=== PATIENT | female | born 1945 | race African-American/Black ===

== ENCOUNTER 2020-06-18 18:33 | Inpatient (IN) | payer MEDICARE, OTHER ==
[~2020-06-18] VITALS: Ht 167.6 cm; Wt 41.7 kg
[~2020-06-18 18:33] MED LIST: ALBUTEROL2.5 MG/3 M INH; ARICEPT10 MG ORAL; ARNUITY ELLIP100 MCG IH; ASCORBIC ACID500 MG ORAL; ASPIRIN81 M3 PO; AZOPT10 ML OP; BREO ELLIPTA 11 EACH IH; BRIMONIDINE TART5 ML BOTH EYES; COMBIVENT RESPIM4 GM IH; CRESTOR10 M1 ORAL; DOCUSATE SODIU250 MG ORAL; IPRATROPIU0.2 MG/1 M HHN; KEPPRA500 MG ORAL; METOPROLOL TAR100 M1 ORAL; MONTELUKAST SOD10 MG ORAL; MULTIVITAMINS1 EA13 ORAL; NAMENDA10 MG ORAL; NITROSTAT0.4 M1 SL; OYSTERCAL-D 501 EACH PO; TEGRETOL200 MG PO; TRAVATAN Z5 ML OP; TYLENOL325 MG ORAL
--- NOTE | 2020-06-18 18:36 | Emergency Room Report ---
History of Present Illness General Chief Complaint: Altered Level of Consciousness Source: Medical Record, EMS Present Illness HPI Patient is a 75-year-old female reported COVID +19 patient who was brought in by EMS from her extended care facility for altered mental status. Patient has a DNR in her chart that states only comfort care. Unclear baseline mental status. Patient is only responsive to pain. Unable to obtain further history at this time. Allergies: Coded Allergies: NO KNOWN ALLERGIES (Unverified Allergy, Unknown, 10/21/15) COVID-19 Screening Contact w/high risk pt: Yes Experienced COVID-19 symptoms?: Yes COVID-19 Testing performed HOUSEPERSON: Yes COVID-19 Screening: Positive COVID-19 COVID-19 Testing Source: pnp Patient History Reviewed Nursing Documentation: PMH: Agreed; PSxH: Agreed Nursing Documentation-PMH Hx Cardiac Problems: Yes Hx Hypertension: Yes Hx COPD: Yes Hx Cancer: No Hx Gastrointestinal Problems: No Hx Neurological Problems: Yes Hx Transient Ischemic Attacks: Yes Hx Dementia: Yes Hx Seizures: Yes Review of Systems All Other Systems: limited - encephalopathy Physical Exam Vital Signs Date Time Temp Pulse Resp B/P (MAP) Pulse Ox O2 Delivery O2 Flow Rate FiO2 06/18/20 18:27 100.6 110 14 153/96 (115) 97 Room Air Sp02 EP Interpretation: reviewed, normal General Appearance: other - Responsive only to pain, Chronically Ill Head: normocephalic, atraumatic ENT: dry mucus membranes Neck: full range of motion, no meningismus Respiratory: chest non-tender, no respiratory distress, other - Right lower lobe rhonchi Cardiovascular #1: tachycardia Cardiovascular #2: 2+ carotid (R), 2+ carotid (L) Gastrointestinal: non tender, soft, no guarding, no rebound Rectal: deferred Psychiatric: other - unable to assess if she is not verbal in the emergency room Skin: no rash Lymphatic: no adenopathy Medical Decision Making Diagnostic Impression: Primary Impression: Encephalopathy Additional Impressions: COVID-19 Pneumonia Leukocytosis Hypernatremia ER Course Patient's vital signs demonstrate tachycardia and elevated temperature. Patient was brought to the ER for altered mental status. Unclear baseline mental status. Patient CT brain demonstrates no acute intracranial pathology. Patient is COVID-19 positive. X-ray demonstrates right lower lobe infiltrate. Patient's white blood cell count is 19,000 with normal lactic acid. Patient has been cultured and started on vancomycin as well as cefepime. Patient is hypernatremic. Due to her positive COVID PCR and risk of acute pulmonary edema only 1 L of IV fluids have been given at this time. Patient will be admitted for further treatment and evaluation. Laboratory Tests Test 06/18/20 18:40 06/18/20 19:25 White Blood Count 19.6 K/UL (4.8-10.8) H Red Blood Count 4.82 M/UL (4.20-5.40) Hemoglobin 15.5 G/DL (12.0-16.0) Hematocrit 47.4 % (37.0-47.0) H Mean Corpuscular Volume 98 FL (80-99) Mean Corpuscular Hemoglobin 32.2 PG (27.0-31.0) H Mean Corpuscular Hemoglobin Concent 32.7 G/DL (32.0-36.0) Red Cell Distribution Width 12.9 % (11.6-14.8) Platelet Count 229 K/UL (150-450) Mean Platelet Volume 4.8 FL (6.5-10.1) L Neutrophils (%) (Auto) % (45.0-75.0) Lymphocytes (%) (Auto) % (20.0-45.0) Monocytes (%) (Auto) % (1.0-10.0) Eosinophils (%) (Auto) % (0.0-3.0) Basophils (%) (Auto) % (0.0-2.0) Neutrophils % (Manual) Pending Lymphocytes % (Manual) Pending Platelet Estimate Pending Platelet Morphology Pending Prothrombin Time 11.9 SEC (9.30-11.50) H Prothrombin Time INR 1.1 (0.9-1.1) Activated Partial Thromboplast Time 31 SEC (23-33) Sodium Level 148 MMOL/L (136-145) H Potassium Level 3.6 MMOL/L (3.5-5.1) Chloride Level 107 MMOL/L (98-107) Carbon Dioxide Level 28 MMOL/L (21-32) Anion Gap 13 mmol/L (5-15) Blood Urea Nitrogen 12 mg/dL (7-18) Creatinine 1.2 MG/DL (0.55-1.30) Estimated Glomerular Filtration Rate 53.0 mL/min (>60) Glucose Level 149 MG/DL (74-106) H Lactic Acid Level 1.50 mmol/L (0.4-2.0) Calcium Level 9.0 MG/DL (8.5-10.1) Magnesium Level 2.0 MG/DL (1.8-2.4) Total Bilirubin 0.3 MG/DL (0.2-1.0) Aspartate Amino Transferase (AST) 59 U/L (15-37) H Alanine Aminotransferase (ALT) 58 U/L (12-78) Alkaline Phosphatase 74 U/L (46-116) Total Creatine Kinase 65 U/L (26-308) Troponin I 0.027 ng/mL (0.000-0.056) Pro-B-Type Natriuretic Peptide 767 pg/mL (0-125) H Total Protein 8.7 G/DL (6.4-8.2) H Albumin 3.3 G/DL (3.4-5.0) L Globulin 5.4 g/dL Albumin/Globulin Ratio 0.6 (1.0-2.7) L Arterial Blood pH 7.479 (7.350-7.450) Arterial Blood Partial Pressure CO2 31.0 mmHg (35.0-45.0) L Arterial Blood Partial Pressure O2 70.3 mmHg (75.0-100.0) L Arterial Blood HCO3 22.5 mmol/L (22.0-26.0) Arterial Blood Oxygen Saturation 94.5 % (95-100) L Arterial Blood Base Excess -0.1 (-2-2) Ze Test Positive Microbiology Date/Time Source Procedure Growth Status 06/18/20 18:30 Nasopharynx SARS-CoV-2 RdRp Gene Assay - Final Complete EKG Diagnostic Results EKG Time: 18:35 EP Interpretation: Monet Jones MD Rate: tachycardiac Rhythm: other - Sinus tachycardia ST Segments: no acute changes ASA given to the pt in ED: No Rhythm Strip Diag. Results Rhythm Strip Time: 18:44 EP Interpretation: yes - Monet Jones MD Rate: 109 bpm Rhythm: no PVC's, no ectopy, other - Sinus tachycardia Chest X-Ray Diagnostic Results Chest X-Ray Diagnostic Results : Chest X-Ray Ordered: Yes # of Views/Limited/Complete: 1 View Indication: Other - ams EP Interpretation: Yes Interpretation: no effusion, no pneumothorax, other - Right lower lobe infiltrate Impression: Other - Pneumonia Electronically Signed by: Monet Jones MD Last Vital Signs Date Time Temp Pulse Resp B/P (MAP) Pulse Ox O2 Delivery O2 Flow Rate FiO2 06/18/20 18:27 100.6 110 14 153/96 (115) 97 Room Air Disposition: ADMITTED INPATIENT Condition: Critical Physician Consult: Dr. Danielle MD at 815pm Additional Instructions: Please note that this report is being documented using Needcheck technology. This can lead to erroneous entry secondary to incorrect interpretation by the dictating instrument. Monet Jones M.D. Jun 18, 2020 18:36
[2020-06-18] MEDS ORDERED: Ketorolac 30mg Inj IV ONE (18:45)
[2020-06-18] MEDS ORDERED: Acetaminophen 650 MG SUPP RECTAL ONE (18:45)
[2020-06-18 19:05] VITALS: BP 153/96
[2020-06-18] MEDS ORDERED: Vancomycin 1 GM in NS 275 ML IVPB ONE (19:30)
[2020-06-18] MEDS ORDERED: Cefepime HCl 2 GM in D5W 55 ML IVPB ONE (19:30)
[2020-06-18 19:42] LABS: ANION GAP 13 mmol/L (5-15); BLOOD UREA NITROGEN 12 mg/dL (7-18); CARBON DIOXIDE 28 MMOL/L (21-32); CHLORIDE 107 MMOL/L (98-107); CREATININE 1.2 MG/DL (0.55-1.30); POTASSIUM 3.6 MMOL/L (3.5-5.1); SODIUM 148 MMOL/L (136-145)
[2020-06-18 19:52] LABS: ALANINE AMINOTRANSFERASE 58 U/L (12-78); ALBUMIN 3.3 G/DL (3.4-5.0); ALBUMIN/GLOBULIN RATIO 0.6 (1.0-2.7); ALKALINE PHOSPHATASE 74 U/L (46-116); ASPARTATE AMINO TRANSFERASE 59 U/L (15-37); BILIRUBIN,TOTAL 0.3 MG/DL (0.2-1.0); CREATINE KINASE 65 U/L (26-308)
[2020-06-18] MEDS ORDERED: ELIQUIS5 MG PO (19:56)
[2020-06-18] MEDS ORDERED: ATORVASTATIN CA20 MG ORAL (19:56)
[2020-06-18] MEDS ORDERED: TRUSOPT10 ML BOTH EYES (19:56)
[2020-06-18] MEDS ORDERED: PANTOPRAZOLE SO40 MG ORAL (19:56)
[2020-06-18] MEDS ORDERED: PULMICORT FLEX90 MCG IH (19:56)
[2020-06-18] MEDS ORDERED: [UNRECOGNIZED DRUG - OTHER] GT (19:56)
[2020-06-18] MEDS ORDERED: PRO-STAT LIQUID30 ML ORAL (19:56)
[2020-06-18] MEDS ORDERED: SINGULAIR10 MG ORAL (19:56)
[2020-06-18] MEDS ORDERED: NITRO-BID1 GM TOPIC (19:56)
[2020-06-18] MEDS ORDERED: XALATAN2.5 ML BOTH EYES (19:56)
[2020-06-18] MEDS ORDERED: KEPPRA LIQ100 MG/1 M ORAL (19:56)
[2020-06-18] MEDS ORDERED: METOPROLOL TART50 M1 ORAL (19:56)
[2020-06-18] MEDS ORDERED: TEGRETOL200 MG PO (19:56)
[2020-06-18 20:00] LABS: INR 1.1 (0.9-1.1)
[2020-06-18 20:02] LABS: HEMATOCRIT 47.4 % (37.0-47.0); HEMOGLOBIN 15.5 G/DL (12.0-16.0); MEAN CORPUSCULAR VOLUME 98 FL (80-99); PLATELET COUNT 229 K/UL (150-450); RED BLOOD COUNT 4.82 M/UL (4.20-5.40); RED CELL DISTRIBUTION WIDTH 12.9 % (11.6-14.8); WHITE BLOOD COUNT 19.6 K/UL (4.8-10.8)
[2020-06-18 20:20] VITALS: BP 147/85
[2020-06-18 21:30] VITALS: BP 141/81
[2020-06-18] MEDS ORDERED: Nitroglycerin Subl 0.4mg tab SL PRN (22:00)
[2020-06-18] MEDS: Piperacillin/Tazobactam 3.375 GM in NS 110 ML IVPB SCH (23:54)
[2020-06-19] VITALS: BP 152/70
[2020-06-19 04:00] VITALS: BP 143/89
[2020-06-19 06:44] LABS: ANION GAP 10 mmol/L (5-15); BLOOD UREA NITROGEN 15 mg/dL (7-18); CALCIUM 8.1 MG/DL (8.5-10.1); CARBON DIOXIDE 25 MMOL/L (21-32); CHLORIDE 113 MMOL/L (98-107); CREATININE 0.8 MG/DL (0.55-1.30); POTASSIUM 2.9 MMOL/L (3.5-5.1); SODIUM 148 MMOL/L (136-145)
[2020-06-19 06:57] LABS: HEMATOCRIT 42.8 % (37.0-47.0); MEAN CORPUSCULAR VOLUME 98 FL (80-99); PLATELET COUNT 217 K/UL (150-450); RED BLOOD COUNT 4.38 M/UL (4.20-5.40); RED CELL DISTRIBUTION WIDTH 12.6 % (11.6-14.8); WHITE BLOOD COUNT 21.8 K/UL (4.8-10.8)
[2020-06-19 08:00] VITALS: BP 186/101
[2020-06-19] MEDS: Montelukast 10mg tablet ORAL SCH (08:50)
[2020-06-19] MEDS: Metoprolol Tartrate 50mg tab ORAL SCH ×2 (08:50→20:39)
[2020-06-19] MEDS: Docusate 100mg cap ORAL SCH ×3 (08:50→17:52)
[2020-06-19] MEDS: Calcium Carbonate 500mg w/Vit D 200iu tab ORAL SCH ×2 (08:50→17:53)
[2020-06-19] MEDS: Aspirin Baby 81mg GT SCH (08:51)
[2020-06-19] MEDS: Memantine 10mg tab ORAL SCH ×2 (08:51→17:53)
[2020-06-19] MEDS: Eliquis 5mg tablet GT SCH ×2 (08:51→17:53)
[2020-06-19] MEDS: Nitroglycerin 2% oint pkt TOPIC SCH (08:51)
[2020-06-19] MEDS: Ascorbic Acid 500mg tab ORAL SCH (08:51)
[2020-06-19] MEDS: levETIRAcetam 500mg/5ml Liquid ORAL SCH ×3 (08:51→18:00)
[2020-06-19] MEDS: Megace 400mg/10ml Susp GT SCH ×3 (08:51→18:00)
[2020-06-19] MEDS: Brimonidine 0.2% Opth Sol BOTH EYES SCH ×2 (08:52→17:53)
[2020-06-19] MEDS: Multivitamin w/Minerals tab ORAL SCH (08:52)
[2020-06-19] MEDS: Donepezil 10mg tab ORAL SCH (08:52)
[2020-06-19] MEDS: Dorzolamide 2% 10ml Btl BOTH EYES SCH ×3 (08:52→17:53)
[2020-06-19] MEDS: carBAMazepine 200mg tab GT SCH ×2 (08:53→20:38)
[2020-06-19] MEDS: dexAMETHasone 10mg/ml Inj IV SCH (08:53)
[2020-06-19] MEDS: Piperacillin/Tazobactam 3.375 GM in NS 110 ML IVPB SCH ×2 (08:54→16:50)
[2020-06-19] MEDS: Budesonide HHN 0.25mg/2ml ud HHN SCH (09:00)
[2020-06-19] MEDS ORDERED: Enoxaparin 30mg Inj SUBQ SCH (09:00)
--- NOTE | 2020-06-19 09:42 | Diagnostic Imaging Report ---
Procedure: XRAY Chest 1v Reason for study: Shortness of breath Comparison films: 10/21/2015. FINDINGS: Radiograph is rotated. Vascularity is normal. There is diffuse interstitial prominence. Mild perihilar densities noted. Question early infiltrate. Cardiac and mediastinal silhouette are within normal limits. CP angles are sharp. The bony thorax appear unremarkable. IMPRESSION: Mild bilateral perihilar densities. Question early infiltrate. Recommend follow-up.
[2020-06-19 12:00] VITALS: BP 125/73
[2020-06-19] MEDS: Albuterol Sulfate Syrup 2mg/5ml ORAL SCH ×2 (13:02→20:46)
--- NOTE | 2020-06-19 15:30 | History and Physical Report ---
DATE OF ADMISSION: 06/18/2020 REASON FOR ADMISSION: COVID pneumonia. HISTORY OF PRESENT ILLNESS: This is a 75-year-old female reportedly COVID positive, presents from a [facility] facility with altered mental status. The patient is Do Not Resuscitate. The patient is unable to give any further history. The patient was seen and evaluated in the emergency room, was noted to have significant leukocytosis and noted hypoxemia as well as hyponatremia. The patient was admitted for further care and management. The patient is placed in isolation. X-rays as mentioned, showed focal infiltrate. The patient was placed on oxygen and detention orders were resumed. The patient noted to be hypertensive overnight. PAST MEDICAL HISTORY: Notable for dysrhythmias, hypercholesterolemia, glaucoma, COPD, dementia, and reflux disease. MEDICATIONS: Reviewed. ALLERGIES: Reviewed. SOCIAL HISTORY: Resides in a [facility] facility, likely mostly bedbound at this time. REVIEW OF SYSTEMS: Unobtainable due to the patient's present state. PHYSICAL EXAMINATION: VITAL SIGNS: Blood pressure 186/102, pulse 86, respirations 20. Saturation 93%. The remainder of physical exam was deferred due to COVID positive state. LABORATORY DATA: Sodium reviewed, potassium 2.9. BUN/creatinine normal. Arterial blood gases, 7.47/31/70/22. White count 21.8, hematocrit 42, platelets of 217. X-rays with noted fluffy infiltrate. IMPRESSION: 1. COVID pneumonia. 2. Respiratory insufficiency. 3. Hypoxemia. 4. Acute encephalopathy 5. Hypokalemia. 6. Leukocytosis. 7. Possible sepsis. 8. Dementia. 9. Hypercholesterolemia. 10. DNR state. RECOMMENDATIONS: Supportive care. Resume medications from the detention. Maintain apixaban. Empiric antibiotics and dexamethasone. Discussed with Infectious Disease as to remdesivir. Monitor oxygen levels and monitor respiratory status. At present, the patient is Do Not Resuscitate. We will attempt to stabilize and discharge the patient back to the [facility] facility when able. Zane Loza M.D. DR: RON JOB#: [id number] CC: MICHAEL
[2020-06-19 16:00] VITALS: BP 127/83
--- NOTE | 2020-06-19 17:30 | Consultation ---
DATE OF CONSULTATION: 06/19/2020 INFECTIOUS DISEASES CONSULTATION This consult is for coverage of Dr. Manuel CONSULTING PHYSICIAN: Kobe Brito MD. PRIMARY ATTENDING PHYSICIAN: Zane Loza MD. REASON FOR CONSULTATION: Sepsis, COVID-19 disease. HISTORY OF PRESENT ILLNESS: The patient is a 75-year-old female admitted last night from a nursing facility because of decrease in p.o. intake for three days, weakness, drowsiness, frailty. PAST MEDICAL HISTORY: Significant for hypertension, COPD, Alzheimer's dementia, cachexia, hyperlipidemia, dysphagia, major depression. ALLERGIES: No known drug allergies. MEDICATIONS: Atorvastatin, Xalatan eye drops, vancomycin, potassium chloride, dexamethasone, Protonix, Eliquis, vitamin C, aspirin, Alphagan eye drops, carbamazepine, Colace, Aricept, Trusopt eye drops, Keppra, Megace, memantine , Singulair, multivitamin, nitroglycerin, calcium with vitamin D, Zosyn, Pulmicort, Tylenol, Mylanta. SOCIAL HISTORY: Single, [facility] resident. No history of alcohol, drug abuse, or smoking. REVIEW OF SYSTEMS: The patient is noncommunicative, but she had fever of 102.4 in the hospital. PHYSICAL EXAMINATION: VITAL SIGNS: Temperature 98.6, pulse 102, blood pressure 186/101. GENERAL APPEARANCE: Seems to be cachectic. HEAD AND NECK: [place] conjunctiva. HEART: Tachycardic. LUNGS: Bilateral rhonchi. The patient is on room air oxygen. O2 saturation is 96%. ABDOMEN: Soft. EXTREMITIES: He has no edema, has muscle atrophy. NEUROLOGIC: Noncommunicative, drowsy. LABORATORY AND DIAGNOSTIC DATA: WBC 22.8, hemoglobin 14, hematocrit 42, platelet 217, lymphocyte low 10 to 12 percent. Sodium 148, potassium 2.9, chloride 113, bicarb 25, BUN 15, creatinine 0.8, glucose is 122. COVID-19 test was positive. Chest x-ray showed mild bilateral perihilar densities. IMPRESSION: Sepsis with fever, leukocytosis, tachycardia, and has COVID-19 disease. The patient is DNR status, has COPD, Alzheimer's dementia, cachexia, dysphagia, hypertension. RECOMMENDATION: Continue with vancomycin and Zosyn. We will follow up the cultures. The patient is in room air oxygen and also DNR status and comfort care we will not start Remdesivir. At the end of my exam, I thank Dr. Loza, for involving me in the care of this patient. Kobe Brito M.D. DR: Fredy JOB#: [id number] CC: MICHAEL
[2020-06-19 20:00] VITALS: BP 130/79
[2020-06-19] MEDS ORDERED: Vancomycin 1 GM in NS 275 ML IVPB SCH (20:00)
[2020-06-19] MEDS: Latanoprost 0.005% Opth 2.5ml Soln BOTH EYES SCH (20:53)
[2020-06-20] VITALS: BP 142/85
[2020-06-20] MEDS: Piperacillin/Tazobactam 3.375 GM in NS 110 ML IVPB SCH ×2 (00:19→08:25)
[2020-06-20 04:00] VITALS: BP 154/96
[2020-06-20 06:11] LABS: HEMATOCRIT 42.8 % (37.0-47.0); HEMOGLOBIN 13.8 G/DL (12.0-16.0); MEAN CORPUSCULAR VOLUME 98 FL (80-99); PLATELET COUNT 244 K/UL (150-450); RED BLOOD COUNT 4.35 M/UL (4.20-5.40); RED CELL DISTRIBUTION WIDTH 12.7 % (11.6-14.8); WHITE BLOOD COUNT 17.7 K/UL (4.8-10.8)
[2020-06-20 06:57] LABS: ALANINE AMINOTRANSFERASE 53 U/L (12-78); ALBUMIN 2.6 G/DL (3.4-5.0); ALBUMIN/GLOBULIN RATIO 0.5 (1.0-2.7); ALKALINE PHOSPHATASE 63 U/L (46-116); ANION GAP 12 mmol/L (5-15); ASPARTATE AMINO TRANSFERASE 52 U/L (15-37); BILIRUBIN,TOTAL 0.4 MG/DL (0.2-1.0); BLOOD UREA NITROGEN 17 mg/dL (7-18); CALCIUM 8.5 MG/DL (8.5-10.1); CARBON DIOXIDE 23 MMOL/L (21-32); CHLORIDE 118 MMOL/L (98-107); CREATININE 0.9 MG/DL (0.55-1.30); POTASSIUM 3.8 MMOL/L (3.5-5.1); SODIUM 153 MMOL/L (136-145)
[2020-06-20 08:00] VITALS: BP 159/90
[2020-06-20] MEDS: Montelukast 10mg tablet ORAL SCH (08:26)
[2020-06-20] MEDS: dexAMETHasone 10mg/ml Inj IV SCH (08:26)
[2020-06-20] MEDS: Multivitamin w/Minerals tab ORAL SCH (08:26)
[2020-06-20] MEDS: Ascorbic Acid 500mg tab ORAL SCH (08:26)
[2020-06-20] MEDS: Memantine 10mg tab ORAL SCH ×2 (08:26→17:10)
[2020-06-20] MEDS: Donepezil 10mg tab ORAL SCH (08:26)
[2020-06-20] MEDS: Aspirin Baby 81mg GT SCH (08:27)
[2020-06-20] MEDS: Metoprolol Tartrate 50mg tab ORAL SCH ×2 (08:27→20:40)
[2020-06-20] MEDS: Docusate 100mg cap ORAL SCH (08:27)
[2020-06-20] MEDS: Nitroglycerin 2% oint pkt TOPIC SCH (08:27)
[2020-06-20] MEDS: carBAMazepine 200mg tab GT SCH ×2 (08:28→20:42)
[2020-06-20] MEDS: levETIRAcetam 500mg/5ml Liquid ORAL SCH ×2 (08:28→17:10)
[2020-06-20] MEDS: Calcium Carbonate 500mg w/Vit D 200iu tab ORAL SCH ×2 (08:28→17:10)
[2020-06-20] MEDS: Eliquis 5mg tablet GT SCH ×2 (08:28→17:10)
[2020-06-20] MEDS: Budesonide HHN 0.25mg/2ml ud HHN SCH ×2 (08:28→09:00)
[2020-06-20] MEDS: Dorzolamide 2% 10ml Btl BOTH EYES SCH ×3 (08:30→17:23)
[2020-06-20] MEDS: Brimonidine 0.2% Opth Sol BOTH EYES SCH ×2 (08:30→17:23)
[2020-06-20] MEDS: Docusate 100mg/10ml Liq ORAL SCH ×3 (10:24→17:10)
[2020-06-20] MEDS: Albuterol Sulfate Syrup 2mg/5ml ORAL SCH ×2 (10:24→20:41)
--- NOTE | 2020-06-20 10:45 | Consultation ---
DATE OF CONSULTATION: 06/20/2020 INTERNAL MEDICINE CONSULTATION CONSULTING PHYSICIAN: Toni Bennett MD. REASON FOR CONSULTATION: General internal medicine management of COVID positive patient with multiple medical problems. HISTORY OF PRESENT ILLNESS: The patient is a 75-year-old female who is apparently COVID positive from a alf facility. She was transferred with complaints of altered mental status. She is currently lethargic and somnolent and drowsy. She is unable to provide any additional history, but per report, she is normally verbal at the alf facility. On evaluation in the emergency room, the patient's blood sugar was normal. She was febrile to 103.9. The patient's rapid COVID test in the ER was confirmed positive. The patient has been pancultured, started on intravenous antibiotics. She is now admitted for further evaluation and care. PAST MEDICAL HISTORY: Significant for history of encephalopathy, history of ischemic cardiomyopathy and coronary artery disease, history of dysphagia, Alzheimer disease, stroke with hemiparesis, protein-calorie malnutrition, dementia, and COPD. PAST SURGICAL HISTORY: Unknown. CURRENT MEDICATIONS: Reconciled and reviewed. ALLERGIES: None. FAMILY HISTORY: Unknown. SOCIAL HISTORY: There is no known history of tobacco, ethanol, or drugs. REVIEW OF SYSTEMS: From the patient is unobtainable. PHYSICAL EXAMINATION: GENERAL: The patient is a thin female, in no apparent distress. HEENT: Head is normocephalic and atraumatic. Pupils are equal, round, and reactive to light. Sclerae are anicteric. Oropharynx is clear. NECK: Supple. HEART: Regular rate and rhythm. LUNGS: Clear. ABDOMEN: Soft, nontender, and nondistended. EXTREMITIES: Without clubbing, cyanosis, or edema. LABORATORY DATA: Labs showed white count of 19,000, hemoglobin 15, hematocrit 47. Sodium 148, potassium 3.6, BUN of 12, creatinine was 1.2. Chest x-ray showed bilateral perihilar infiltrates. ASSESSMENT: This is a 75-year-old female who presents with complaints of fevers, altered mental status, COVID positive, likely with COVID-19 pneumonia. RECOMMENDATIONS: Empiric antibiotic therapy to cover for bacterial pneumonia. Consider intravenous steroids, Remdesivir. ID consultation. DVT prophylaxis. We will discontinue Megace due to the risk of thromboembolism. The patient does have an advance directive for DNR. Her prognosis currently is guarded. Toni Bennett M.D. DR: DAVID JOB#: [id number] CC:
--- NOTE | 2020-06-20 10:50 | Infectious Diseases Prog Note ---
Assessment/Plan Assessment/Plan antibiotics : vancomycin iv, zosyn, dexamethasone A 1. COVID 19 pneumonia on room air, O2 saturation 96 percent 2. hypertension 3. dementia 4. COPD P 1. continue dexamethasone day 2 2. d/c iv vancomycin, zosyn 3. will follow up cultures 4. continue isolation Subjective ROS Limited/Unobtainable: Yes Allergies: Coded Allergies: NO KNOWN ALLERGIES (Unverified Allergy, Unknown, 10/21/15) Objective Last 24 Hour Vital Signs Date Time Temp Pulse Resp B/P (MAP) Pulse Ox O2 Delivery O2 Flow Rate FiO2 06/20/20 08:27 159/90 06/20/20 08:27 95 159/90 06/20/20 08:00 98.2 95 20 159/90 (113) 92 06/20/20 04:00 97.9 87 20 154/96 (115) 98 06/20/20 00:00 97.2 81 20 142/85 (104) 96 06/19/20 20:39 89 130/79 06/19/20 20:26 Room Air 06/19/20 20:00 97.5 89 20 130/79 (96) 95 06/19/20 16:00 97.5 78 19 127/83 (98) 98 06/19/20 12:00 98.1 80 19 125/73 (90) 96 Height (Feet): 5 Height (Inches): 6.00 Weight (Pounds): 95 Microbiology Date/Time Source Procedure Growth Status 06/18/20 18:40 Blood Blood Culture - Preliminary NO GROWTH AFTER 24 HOURS Resulted 06/18/20 18:25 Blood Blood Culture - Preliminary NO GROWTH AFTER 24 HOURS Resulted 06/18/20 18:30 Nasopharynx SARS-CoV-2 RdRp Gene Assay - Final Complete 06/18/20 18:40 Rectum Received Laboratory Tests Test 06/20/20 05:30 White Blood Count 17.7 K/UL (4.8-10.8) H Red Blood Count 4.35 M/UL (4.20-5.40) Hemoglobin 13.8 G/DL (12.0-16.0) Hematocrit 42.8 % (37.0-47.0) Mean Corpuscular Volume 98 FL (80-99) Mean Corpuscular Hemoglobin 31.7 PG (27.0-31.0) H Mean Corpuscular Hemoglobin Concent 32.2 G/DL (32.0-36.0) Red Cell Distribution Width 12.7 % (11.6-14.8) Platelet Count 244 K/UL (150-450) Mean Platelet Volume 5.3 FL (6.5-10.1) L Neutrophils (%) (Auto) % (45.0-75.0) Lymphocytes (%) (Auto) % (20.0-45.0) Monocytes (%) (Auto) % (1.0-10.0) Eosinophils (%) (Auto) % (0.0-3.0) Basophils (%) (Auto) % (0.0-2.0) Differential Total Cells Counted 100 Neutrophils % (Manual) 88 % (45-75) H Lymphocytes % (Manual) 9 % (20-45) L Monocytes % (Manual) 3 % (1-10) Eosinophils % (Manual) 0 % (0-3) Basophils % (Manual) 0 % (0-2) Band Neutrophils 0 % (0-8) Platelet Estimate Adequate Platelet Morphology Normal Red Blood Cell Morphology Normal Sodium Level 153 MMOL/L (136-145) H Potassium Level 3.8 MMOL/L (3.5-5.1) Chloride Level 118 MMOL/L (98-107) H Carbon Dioxide Level 23 MMOL/L (21-32) Anion Gap 12 mmol/L (5-15) Blood Urea Nitrogen 17 mg/dL (7-18) Creatinine 0.9 MG/DL (0.55-1.30) Estimat Glomerular Filtration Rate > 60 mL/min (>60) Glucose Level 100 MG/DL (74-106) Calcium Level 8.5 MG/DL (8.5-10.1) Total Bilirubin 0.4 MG/DL (0.2-1.0) Aspartate Amino Transf (AST/SGOT) 52 U/L (15-37) H Alanine Aminotransferase (ALT/SGPT) 53 U/L (12-78) Alkaline Phosphatase 63 U/L (46-116) Total Protein 7.5 G/DL (6.4-8.2) Albumin 2.6 G/DL (3.4-5.0) L Globulin 4.9 g/dL Albumin/Globulin Ratio 0.5 (1.0-2.7) L Carbamazepine (Tegretol) Level 12.9 ug/mL (4.0-12.0) *H Current Medications Medications (Trade) Dose Ordered Sig/Johnson Route PRN Reason Start Time Stop Time Status Last Admin Dose Admin Acetaminophen (Tylenol) 650 mg Q4H PRN ORAL Temp >100.5/ mild pain (1-3) 06/18/20 21:45 07/18/20 21:44 Al Hydroxide/Mg Hydroxide (Mylanta) 30 ml EVERY 4 HOURS PRN ORAL stomach upset/heartburn/indige 06/18/20 21:45 07/18/20 21:44 Apixaban (Eliquis) 5 mg BID GT 06/19/20 09:00 09/17/20 08:59 06/20/20 08:28 Ascorbic Acid (Vitamin C) 500 mg DAILY ORAL 06/19/20 09:00 07/19/20 08:59 06/20/20 08:26 Aspirin (ASA) 81 mg DAILY GT 06/19/20 09:00 08/03/20 08:59 06/20/20 08:27 Atorvastatin Calcium (Lipitor) 20 mg BEDTIME ORAL 06/19/20 21:00 09/17/20 20:59 06/19/20 20:38 Beclomethasone Dipropionate (Qvar 40 Inhaler) 1 puff BIDRT INH 06/20/20 11:00 07/20/20 10:59 Brimonidine Tartrate (Alphagan) 1 drop BID BOTH EYES 06/19/20 09:00 09/17/20 08:59 06/20/20 08:30 Calcium/Vitamin D (OsCal D) 1 tab BID ORAL 06/19/20 09:00 09/17/20 08:59 06/20/20 08:28 Carbamazepine (TEGretol) 200 mg Q12HR GT 06/19/20 09:00 07/19/20 08:59 06/20/20 08:28 Dexamethasone Sodium Phosphate (Decadron 10mg/ ml Inj) 6 mg DAILY IV 06/19/20 09:00 09/17/20 08:59 06/20/20 08:26 Docusate Sodium (Colace) 100 mg THREE TIMES A DAY ORAL 06/20/20 09:30 07/20/20 09:29 06/20/20 10:24 Donepezil HCl (Aricept) 10 mg DAILY ORAL 06/19/20 09:00 07/19/20 08:59 06/20/20 08:26 Dorzolamide HCl (Trusopt) 1 drop TID BOTH EYES 06/19/20 09:00 07/19/20 08:59 06/20/20 08:30 Latanoprost (Xalatan) 1 drop BEDTIME BOTH EYES 06/19/20 21:00 07/19/20 20:59 06/19/20 20:53 Levetiracetam (Keppra) 500 mg TWICE A DAY ORAL 06/19/20 09:00 07/19/20 08:59 06/20/20 08:28 Memantine (Namenda) 10 mg TWICE A DAY ORAL 06/19/20 09:00 07/19/20 08:59 06/20/20 08:26 Metoprolol Tartrate (Lopressor) 50 mg EVERY 12 HOURS ORAL 06/19/20 09:00 09/17/20 08:59 06/20/20 08:27 Montelukast Sodium (Singulair) 10 mg DAILY ORAL 06/19/20 09:00 09/17/20 08:59 06/20/20 08:26 Multivitamins Therapeutic (Therapeutic Multivitamin) 1 ea DAILY ORAL 06/19/20 09:00 07/19/20 08:59 06/20/20 08:26 Nitroglycerin (Nitro-Bid) 1 inch DAILY TOPIC 06/19/20 09:00 07/19/20 08:59 06/20/20 08:27 Nitroglycerin (Ntg) 0.4 mg Q5M X 3 DOSES PRN SL Prn Chest Pain 06/18/20 22:00 07/18/20 21:59 Pantoprazole (Protonix) 40 mg DAILY ORAL 06/19/20 09:00 07/19/20 08:59 06/20/20 08:26 Piperacillin Sod/ Tazobactam Sod 3.375 gm/Sodium Chloride 110 ml @ 27.5 mls/hr Q8H IVPB 06/19/20 00:00 06/26/20 00:00 06/20/20 08:25 Vancomycin HCl (Vanco pharmacy to dose) 1 ea DAILY PRN MISC Per rx protocol 06/18/20 21:45 07/18/20 21:44 Vancomycin HCl 1 gm/Sodium Chloride 275 ml @ 183.708 mls/hr Q24H IVPB 06/19/20 20:00 06/24/20 19:59 06/19/20 20:38 Jason Manuel MD Jun 20, 2020 10:50
[2020-06-20] MEDS: Qvar 40mcg Inhaler 6.8 gm INH SCH ×3 (11:00→22:00)
[2020-06-20 12:00] VITALS: BP 111/69
--- NOTE | 2020-06-20 13:13 | Diagnostic Imaging Report ---
Procedure: XRAY Chest 1v Reason for study: Reason For Exam: SOB Comparison films: 06/18/2020. FINDINGS: A single one view chest is obtained. Vascularity is normal. Left basilar infiltrate increased compared to prior exam. Cardiac and mediastinal silhouette are within normal limits. CP angles are sharp. The bony thorax appear unremarkable. IMPRESSION: Increased left basilar infiltrate.
--- NOTE | 2020-06-20 13:37 | Pulmonology Progress Note ---
Subjective ROS Limited/Unobtainable: Yes Allergies: Coded Allergies: NO KNOWN ALLERGIES (Unverified Allergy, Unknown, 10/21/15) Subjective on isolation no clear distress Objective Last 24 Hour Vital Signs Date Time Temp Pulse Resp B/P (MAP) Pulse Ox O2 Delivery O2 Flow Rate FiO2 06/20/20 12:00 98.2 86 20 111/69 (83) 92 06/20/20 09:00 Room Air 06/20/20 08:27 159/90 06/20/20 08:27 95 159/90 06/20/20 08:00 98.2 95 20 159/90 (113) 92 06/20/20 04:00 97.9 87 20 154/96 (115) 98 06/20/20 00:00 97.2 81 20 142/85 (104) 96 06/19/20 20:39 89 130/79 06/19/20 20:26 Room Air 06/19/20 20:00 97.5 89 20 130/79 (96) 95 06/19/20 16:00 97.5 78 19 127/83 (98) 98 Intake and Output 06/19/20 06/20/20 19:00 07:00 Intake Total 228.0 ml 412.500 ml Balance 228.0 ml 412.500 ml Intake Oral 50 ml IV Total 178.0 ml 412.500 ml # Voids 2 Objective deferred as COVID+ Microbiology Date/Time Source Procedure Growth Status 06/18/20 18:40 Blood Blood Culture - Preliminary NO GROWTH AFTER 24 HOURS Resulted 06/18/20 18:25 Blood Blood Culture - Preliminary NO GROWTH AFTER 24 HOURS Resulted 06/18/20 18:30 Nasopharynx SARS-CoV-2 RdRp Gene Assay - Final Complete 06/18/20 18:40 Rectum Received Laboratory Tests 06/20/20 05:30: White Blood Count 17.7H, Red Blood Count 4.35, Hemoglobin 13.8, Hematocrit 42.8 , Mean Corpuscular Volume 98, Mean Corpuscular Hemoglobin 31.7H, Mean Corpuscular Hemoglobin Concent 32.2, Red Cell Distribution Width 12.7, Platelet Count 244, Mean Platelet Volume 5.3L, Neutrophils (%) (Auto) , Lymphocytes (%) ( Auto) , Monocytes (%) (Auto) , Eosinophils (%) (Auto) , Basophils (%) (Auto) , Differential Total Cells Counted 100, Neutrophils % (Manual) 88H, Lymphocytes % (Manual) 9L, Monocytes % (Manual) 3, Eosinophils % (Manual) 0, Basophils % ( Manual) 0, Band Neutrophils 0, Platelet Estimate Adequate, Platelet Morphology Normal, Red Blood Cell Morphology Normal, Sodium Level 153H, Potassium Level 3.8 , Chloride Level 118H, Carbon Dioxide Level 23, Anion Gap 12, Blood Urea Nitrogen 17, Creatinine 0.9, Estimat Glomerular Filtration Rate > 60, Glucose Level 100, Calcium Level 8.5, Total Bilirubin 0.4, Aspartate Amino Transf (AST/ SGOT) 52H, Alanine Aminotransferase (ALT/SGPT) 53, Alkaline Phosphatase 63, Total Protein 7.5, Albumin 2.6L, Globulin 4.9, Albumin/Globulin Ratio 0.5L, Carbamazepine (Tegretol) Level 12.9*H Current Medications Medications (Trade) Dose Ordered Sig/Johnson Route PRN Reason Start Time Stop Time Status Last Admin Dose Admin Acetaminophen (Tylenol) 650 mg Q4H PRN ORAL Temp >100.5/ mild pain (1-3) 06/18/20 21:45 07/18/20 21:44 Al Hydroxide/Mg Hydroxide (Mylanta) 30 ml EVERY 4 HOURS PRN ORAL stomach upset/heartburn/indige 06/18/20 21:45 07/18/20 21:44 Apixaban (Eliquis) 5 mg BID GT 06/19/20 09:00 09/17/20 08:59 06/20/20 08:28 Ascorbic Acid (Vitamin C) 500 mg DAILY ORAL 06/19/20 09:00 07/19/20 08:59 06/20/20 08:26 Aspirin (ASA) 81 mg DAILY GT 06/19/20 09:00 08/03/20 08:59 06/20/20 08:27 Atorvastatin Calcium (Lipitor) 20 mg BEDTIME ORAL 06/19/20 21:00 09/17/20 20:59 06/19/20 20:38 Beclomethasone Dipropionate (Qvar 40 Inhaler) 1 puff BIDRT INH 06/20/20 11:00 07/20/20 10:59 06/20/20 11:27 Brimonidine Tartrate (Alphagan) 1 drop BID BOTH EYES 06/19/20 09:00 09/17/20 08:59 06/20/20 08:30 Calcium/Vitamin D (OsCal D) 1 tab BID ORAL 06/19/20 09:00 09/17/20 08:59 06/20/20 08:28 Carbamazepine (TEGretol) 200 mg Q12HR GT 06/19/20 09:00 07/19/20 08:59 06/20/20 08:28 Dexamethasone Sodium Phosphate (Decadron 10mg/ ml Inj) 6 mg DAILY IV 06/19/20 09:00 09/17/20 08:59 06/20/20 08:26 Docusate Sodium (Colace) 100 mg THREE TIMES A DAY ORAL 06/20/20 09:30 07/20/20 09:29 06/20/20 13:21 Donepezil HCl (Aricept) 10 mg DAILY ORAL 06/19/20 09:00 07/19/20 08:59 06/20/20 08:26 Dorzolamide HCl (Trusopt) 1 drop TID BOTH EYES 06/19/20 09:00 07/19/20 08:59 06/20/20 13:21 Latanoprost (Xalatan) 1 drop BEDTIME BOTH EYES 06/19/20 21:00 07/19/20 20:59 06/19/20 20:53 Levetiracetam (Keppra) 500 mg TWICE A DAY ORAL 06/19/20 09:00 07/19/20 08:59 06/20/20 08:28 Memantine (Namenda) 10 mg TWICE A DAY ORAL 06/19/20 09:00 07/19/20 08:59 06/20/20 08:26 Metoprolol Tartrate (Lopressor) 50 mg EVERY 12 HOURS ORAL 06/19/20 09:00 09/17/20 08:59 06/20/20 08:27 Montelukast Sodium (Singulair) 10 mg DAILY ORAL 06/19/20 09:00 09/17/20 08:59 06/20/20 08:26 Multivitamins Therapeutic (Therapeutic Multivitamin) 1 ea DAILY ORAL 06/19/20 09:00 07/19/20 08:59 06/20/20 08:26 Nitroglycerin (Nitro-Bid) 1 inch DAILY TOPIC 06/19/20 09:00 07/19/20 08:59 06/20/20 08:27 Nitroglycerin (Ntg) 0.4 mg Q5M X 3 DOSES PRN SL Prn Chest Pain 06/18/20 22:00 07/18/20 21:59 Pantoprazole (Protonix) 40 mg DAILY ORAL 06/19/20 09:00 07/19/20 08:59 06/20/20 08:26 Assessment/Plan Assessment/Plan 1. COVID pneumonia. 2. Respiratory insufficiency. 3. Hypoxemia. 4. DNR 5. Hypokalemia. 6. Leukocytosis. 7. Possible sepsis. 8. Dementia. 9. Hypercholesterolemia. PLAN care noted ID follow up monitor oxygen needs monitor labs care reviewed await further improvement conservative management impression, plan, and exam edited and reviewed in detail care discussed with Zane Mcguire MD Jun 20, 2020 13:37
[2020-06-20 16:00] VITALS: BP 103/60
[2020-06-20 20:00] VITALS: BP 123/63
[2020-06-20] MEDS: Latanoprost 0.005% Opth 2.5ml Soln BOTH EYES SCH (20:42)
[2020-06-21] VITALS: BP 140/87
[2020-06-21 04:00] VITALS: BP 137/83
[2020-06-21 08:00] VITALS: BP 197/115
[2020-06-21] MEDS: dexAMETHasone 10mg/ml Inj IV SCH (09:34)
[2020-06-21] MEDS: Aspirin Baby 81mg GT SCH (09:34)
[2020-06-21] MEDS: Montelukast 10mg tablet ORAL SCH (09:34)
[2020-06-21] MEDS: Multivitamin w/Minerals tab ORAL SCH (09:34)
[2020-06-21] MEDS: Memantine 10mg tab ORAL SCH ×2 (09:34→17:05)
[2020-06-21] MEDS: Docusate 100mg/10ml Liq ORAL SCH ×3 (09:34→17:04)
[2020-06-21] MEDS: carBAMazepine 200mg tab GT SCH ×2 (09:35→21:13)
[2020-06-21] MEDS: Metoprolol Tartrate 50mg tab ORAL SCH ×2 (09:35→21:12)
[2020-06-21] MEDS: Calcium Carbonate 500mg w/Vit D 200iu tab ORAL SCH ×2 (09:35→17:05)
[2020-06-21] MEDS: levETIRAcetam 500mg/5ml Liquid ORAL SCH ×2 (09:36→17:04)
[2020-06-21] MEDS: Donepezil 10mg tab ORAL SCH (09:36)
[2020-06-21] MEDS: Eliquis 5mg tablet GT SCH ×2 (09:36→17:05)
[2020-06-21] MEDS: Nitroglycerin 2% oint pkt TOPIC SCH (09:36)
[2020-06-21] MEDS: Brimonidine 0.2% Opth Sol BOTH EYES SCH ×2 (09:37→17:12)
[2020-06-21] MEDS: Ascorbic Acid 500mg tab ORAL SCH (09:37)
[2020-06-21] MEDS: Dorzolamide 2% 10ml Btl BOTH EYES SCH ×3 (09:37→17:12)
[2020-06-21] MEDS: Qvar 40mcg Inhaler 6.8 gm INH SCH (09:37)
[2020-06-21] MEDS: Albuterol Sulfate Syrup 2mg/5ml ORAL SCH ×2 (09:42→21:13)
[2020-06-21 12:00] VITALS: BP 117/77
--- NOTE | 2020-06-21 12:28 | General Progress Note ---
Assessment/Plan Problem List: (1) COVID-19 ICD Codes: U07.1 - COVID-19 SNOMED: 254021377 (2) Pneumonia ICD Codes: J18.9 - Pneumonia, unspecified organism SNOMED: 436008634, 420850819 (3) Encephalopathy ICD Codes: G93.40 - Encephalopathy, unspecified SNOMED: 94056667 (4) Leukocytosis ICD Codes: D72.829 - Elevated white blood cell count, unspecified SNOMED: 371622330, 260734434 (5) Hypernatremia ICD Codes: E87.0 - Hyperosmolality and hypernatremia SNOMED: 616376247 (6) ACS (acute coronary syndrome) ICD Codes: I24.9 - Acute ischemic heart disease, unspecified SNOMED: 047118997 Status: stable Assessment/Plan: steroids monitor off abx follow labs monitor cxr may need hypotonic fluids cont inhalers pulm and ID noted. cont dvt/stress ulcer prophylaxis Subjective ROS Limited/Unobtainable: No Constitutional: Reports: malaise, weakness HEENT: Reports: no symptoms Cardiovascular: Reports: no symptoms Respiratory: Reports: cough, shortness of breath Gastrointestinal/Abdominal: Reports: no symptoms Genitourinary: Reports: no symptoms Neurologic/Psychiatric: Reports: pre-existing deficit Endocrine: Reports: no symptoms Hematologic/Lymphatic: Reports: no symptoms Allergies: Coded Allergies: NO KNOWN ALLERGIES (Unverified Allergy, Unknown, 10/21/15) All Systems: reviewed and negative except above Subjective no events. stable. no fevers. no sob. on steroids. Labs pending for this am. confused. Objective Last 24 Hour Vital Signs Date Time Temp Pulse Resp B/P (MAP) Pulse Ox O2 Delivery O2 Flow Rate FiO2 06/21/20 12:00 97.5 93 18 117/77 (90) 96 06/21/20 10:04 97.7 06/21/20 09:36 197/115 06/21/20 09:35 123 197/115 06/21/20 09:00 Room Air 06/21/20 08:00 100.5 123 22 197/115 (142) 94 06/21/20 04:00 98.8 100 20 137/83 (101) 95 06/21/20 00:00 98.9 102 22 140/87 (104) 95 06/20/20 21:00 Room Air 06/20/20 20:40 95 123/63 06/20/20 20:00 98.0 95 20 123/63 (83) 95 06/20/20 16:00 98.2 91 20 103/60 (74) 95 Intake and Output 06/20/20 06/21/20 19:00 07:00 Intake Total 310.0 ml Output Total 400 ml 400 ml Balance -90.0 ml -400 ml Intake Oral 200 ml IV Total 110.0 ml Output Urine Total 400 ml 400 ml # Voids 1 Laboratory Tests 06/21/20 05:20: Carbamazepine (Tegretol) Level 9.9 Height (Feet): 5 Height (Inches): 6.00 Weight (Pounds): 95 General Appearance: WD/WN, alert Neck: supple Cardiovascular: regular rhythm Respiratory/Chest: chest wall non-tender, lungs clear, normal breath sounds Abdomen: normal bowel sounds, non tender, soft, no organomegaly Edema: no edema noted Arm (L), no edema noted Arm (R) Neurologic: alert, responsive Skin: normal pigmentation Toni Bennett MD Jun 21, 2020 12:28
[2020-06-21 13:04] LABS: ANION GAP 15 mmol/L (5-15); BLOOD UREA NITROGEN 14 mg/dL (7-18); CALCIUM 8.3 MG/DL (8.5-10.1); CARBON DIOXIDE 21 MMOL/L (21-32); CHLORIDE 115 MMOL/L (98-107); CREATININE 0.7 MG/DL (0.55-1.30); POTASSIUM 3.3 MMOL/L (3.5-5.1); SODIUM 151 MMOL/L (136-145)
--- NOTE | 2020-06-21 13:54 | Pulmonology Progress Note ---
Subjective ROS Limited/Unobtainable: Yes Allergies: Coded Allergies: NO KNOWN ALLERGIES (Unverified Allergy, Unknown, 10/21/15) All Systems: reviewed and negative except above Subjective on isolation still tachycardic Objective Last 24 Hour Vital Signs Date Time Temp Pulse Resp B/P (MAP) Pulse Ox O2 Delivery O2 Flow Rate FiO2 06/21/20 12:00 97.5 93 18 117/77 (90) 96 06/21/20 10:04 97.7 06/21/20 09:36 197/115 06/21/20 09:35 123 197/115 06/21/20 09:00 Room Air 06/21/20 08:00 100.5 123 22 197/115 (142) 94 06/21/20 04:00 98.8 100 20 137/83 (101) 95 06/21/20 00:00 98.9 102 22 140/87 (104) 95 06/20/20 21:00 Room Air 06/20/20 20:40 95 123/63 06/20/20 20:00 98.0 95 20 123/63 (83) 95 06/20/20 16:00 98.2 91 20 103/60 (74) 95 Intake and Output 06/20/20 06/21/20 19:00 07:00 Intake Total 310.0 ml Output Total 400 ml 400 ml Balance -90.0 ml -400 ml Intake Oral 200 ml IV Total 110.0 ml Output Urine Total 400 ml 400 ml # Voids 1 Objective deferred as COVID+ Microbiology Date/Time Source Procedure Growth Status 06/18/20 18:40 Blood Blood Culture - Preliminary NO GROWTH AFTER 48 HOURS Resulted 06/18/20 18:25 Blood Blood Culture - Preliminary NO GROWTH AFTER 48 HOURS Resulted 06/18/20 18:40 Nasal Nares MRSA Culture - Final NO METHICILLIN RESISTANT STAPH AUREUS... Complete 06/18/20 18:30 Nasopharynx SARS-CoV-2 RdRp Gene Assay - Final Complete 06/18/20 18:40 Rectum - Final NO CARBAPENEM-RESISTANT ENTEROBACTERI... Complete 06/18/20 18:40 Rectum VRE Culture - Final NO VANCOMYCIN RESISTANT ENTEROCOCCUS ... Complete Laboratory Tests 06/21/20 05:20: Sodium Level 151H, Potassium Level 3.3L, Chloride Level 115H, Carbon Dioxide Level 21, Anion Gap 15, Blood Urea Nitrogen 14, Creatinine 0.7, Estimat Glomerular Filtration Rate > 60, Glucose Level 77, Calcium Level 8.3L, Carbamazepine (Tegretol) Level 9.9 Current Medications Medications (Trade) Dose Ordered Sig/Johnson Route PRN Reason Start Time Stop Time Status Last Admin Dose Admin Acetaminophen (Tylenol) 650 mg Q4H PRN ORAL Temp >100.5/ mild pain (1-3) 06/18/20 21:45 07/18/20 21:44 06/21/20 09:34 Al Hydroxide/Mg Hydroxide (Mylanta) 30 ml EVERY 4 HOURS PRN ORAL stomach upset/heartburn/indige 06/18/20 21:45 07/18/20 21:44 Apixaban (Eliquis) 5 mg BID GT 06/19/20 09:00 09/17/20 08:59 06/21/20 09:36 Ascorbic Acid (Vitamin C) 500 mg DAILY ORAL 06/19/20 09:00 07/19/20 08:59 06/21/20 09:37 Aspirin (ASA) 81 mg DAILY GT 06/19/20 09:00 08/03/20 08:59 06/21/20 09:34 Atorvastatin Calcium (Lipitor) 20 mg BEDTIME ORAL 06/19/20 21:00 09/17/20 20:59 06/20/20 20:40 Beclomethasone Dipropionate (Qvar 40 Inhaler) 1 puff BIDRT INH 06/20/20 11:00 07/20/20 10:59 Brimonidine Tartrate (Alphagan) 1 drop BID BOTH EYES 06/19/20 09:00 09/17/20 08:59 06/21/20 09:37 Calcium/Vitamin D (OsCal D) 1 tab BID ORAL 06/19/20 09:00 09/17/20 08:59 06/21/20 09:35 Carbamazepine (TEGretol) 200 mg Q12HR GT 06/19/20 09:00 07/19/20 08:59 06/21/20 09:35 Clonidine HCl (Catapres Tab) 0.1 mg Q4H PRN ORAL For High Blood Pressure 06/21/20 13:30 09/19/20 13:29 Dexamethasone Sodium Phosphate (Decadron 10mg/ ml Inj) 6 mg DAILY IV 06/19/20 09:00 09/17/20 08:59 06/21/20 09:34 Docusate Sodium (Colace) 100 mg THREE TIMES A DAY ORAL 06/20/20 09:30 07/20/20 09:29 06/21/20 13:04 Donepezil HCl (Aricept) 10 mg DAILY ORAL 06/19/20 09:00 07/19/20 08:59 06/21/20 09:36 Dorzolamide HCl (Trusopt) 1 drop TID BOTH EYES 06/19/20 09:00 07/19/20 08:59 06/21/20 13:06 Latanoprost (Xalatan) 1 drop BEDTIME BOTH EYES 06/19/20 21:00 07/19/20 20:59 06/20/20 20:42 Levetiracetam (Keppra) 500 mg TWICE A DAY ORAL 06/19/20 09:00 07/19/20 08:59 06/21/20 09:36 Memantine (Namenda) 10 mg TWICE A DAY ORAL 06/19/20 09:00 07/19/20 08:59 06/21/20 09:34 Metoprolol Tartrate (Lopressor) 50 mg EVERY 12 HOURS ORAL 06/19/20 09:00 09/17/20 08:59 06/21/20 09:35 Montelukast Sodium (Singulair) 10 mg DAILY ORAL 06/19/20 09:00 09/17/20 08:59 06/21/20 09:34 Multivitamins Therapeutic (Therapeutic Multivitamin) 1 ea DAILY ORAL 06/19/20 09:00 07/19/20 08:59 06/21/20 09:34 Nitroglycerin (Nitro-Bid) 1 inch DAILY TOPIC 06/19/20 09:00 07/19/20 08:59 06/21/20 09:36 Nitroglycerin (Ntg) 0.4 mg Q5M X 3 DOSES PRN SL Prn Chest Pain 06/18/20 22:00 07/18/20 21:59 Pantoprazole (Protonix) 40 mg DAILY ORAL 06/19/20 09:00 07/19/20 08:59 06/21/20 09:36 Potassium Chloride (K-Dur) 40 meq ONCE ORAL 06/21/20 13:45 06/21/20 14:45 Sodium Chloride 1,000 ml @ 75 mls/hr [id number] IV 06/21/20 13:45 07/21/20 13:44 Assessment/Plan Assessment/Plan 1. COVID pneumonia. 2. Respiratory insufficiency. 3. Hypoxemia. 4. DNR 5. Hypokalemia. 6. Leukocytosis. 7. Possible sepsis. 8. Dementia. 9. Hypercholesterolemia. 10. sinus tachycardia PLAN care noted ID follow up monitor oxygen needs monitor labs care reviewed await further improvement conservative management impression, plan, and exam edited and reviewed in detail care discussed with Zane Mcguire MD Jun 21, 2020 13:54
[2020-06-21 16:00] VITALS: BP 173/101
[2020-06-21] MEDS ORDERED: Albuterol/Ipratropium 3ml neb HHN PRN (19:37)
[2020-06-21 20:00] VITALS: BP_SYST 139; BP_DIAS 8; BP_DIAS 92
[2020-06-21] MEDS: Latanoprost 0.005% Opth 2.5ml Soln BOTH EYES SCH (21:15)
[2020-06-22] VITALS (7 sets, daily range): BP systolic 47–174; BP diastolic 89–107
[2020-06-22] MEDS: levETIRAcetam 500mg/5ml Liquid ORAL SCH ×2 (08:46→17:12)
[2020-06-22] MEDS: Metoprolol Tartrate 50mg tab ORAL SCH (08:46)
[2020-06-22] MEDS: Docusate 100mg/10ml Liq ORAL SCH ×3 (08:46→17:12)
[2020-06-22] MEDS: Donepezil 10mg tab ORAL SCH (08:46)
[2020-06-22] MEDS: Montelukast 10mg tablet ORAL SCH (08:46)
[2020-06-22] MEDS: Ascorbic Acid 500mg tab ORAL SCH (08:46)
[2020-06-22] MEDS: Aspirin Baby 81mg GT SCH (08:46)
[2020-06-22] MEDS: Multivitamin w/Minerals tab ORAL SCH (08:47)
[2020-06-22] MEDS: Calcium Carbonate 500mg w/Vit D 200iu tab ORAL SCH ×2 (08:47→17:12)
[2020-06-22] MEDS: Eliquis 5mg tablet GT SCH ×2 (08:47→17:12)
[2020-06-22] MEDS: Nitroglycerin 2% oint pkt TOPIC SCH (08:47)
[2020-06-22] MEDS: carBAMazepine 200mg tab GT SCH ×2 (08:47→21:20)
[2020-06-22] MEDS: Memantine 10mg tab ORAL SCH ×2 (08:47→17:12)
[2020-06-22] MEDS: Brimonidine 0.2% Opth Sol BOTH EYES SCH ×2 (08:48→17:12)
[2020-06-22] MEDS: Dorzolamide 2% 10ml Btl BOTH EYES SCH ×3 (08:48→17:12)
[2020-06-22] MEDS: dexAMETHasone 10mg/ml Inj IV SCH (08:48)
[2020-06-22] MEDS: Albuterol Sulfate Syrup 2mg/5ml ORAL SCH ×2 (08:52→21:21)
--- NOTE | 2020-06-22 10:59 | Pulmonology Progress Note ---
Subjective ROS Limited/Unobtainable: Yes Allergies: Coded Allergies: NO KNOWN ALLERGIES (Unverified Allergy, Unknown, 10/21/15) All Systems: reviewed and negative except above Subjective on isolation still tachycardic off oxygen Objective Last 24 Hour Vital Signs Date Time Temp Pulse Resp B/P (MAP) Pulse Ox O2 Delivery O2 Flow Rate FiO2 06/22/20 09:00 Room Air 06/22/20 08:47 174/107 06/22/20 08:46 114 174/107 06/22/20 08:00 99.9 114 20 174/107 (129) 99 06/22/20 04:53 160/98 06/22/20 04:00 98.7 101 21 47/89 (75) 95 06/22/20 00:30 99.5 113 19 139/91 (107) 96 06/22/20 00:17 99.5 06/22/20 00:00 102.0 115 21 149/97 (114) 96 06/21/20 21:12 96 153/99 06/21/20 21:00 Room Air 06/21/20 20:00 98.8 96 21 139/92 (108) 95 06/21/20 17:17 173/101 06/21/20 16:00 97.5 102 26 173/101 (125) 96 06/21/20 12:00 97.5 93 18 117/77 (90) 96 Intake and Output 06/21/20 06/22/20 19:00 07:00 Intake Total 300 ml 900 ml Output Total 200 ml 500 ml Balance 100 ml 400 ml IV Total 300 ml 900 ml Output Urine Total 200 ml 500 ml Objective deferred as COVID+ Current Medications Medications (Trade) Dose Ordered Sig/Johnson Route PRN Reason Start Time Stop Time Status Last Admin Dose Admin Acetaminophen (Tylenol) 650 mg Q4H PRN ORAL Temp >100.5/ mild pain (1-3) 06/18/20 21:45 07/18/20 21:44 06/21/20 23:47 Al Hydroxide/Mg Hydroxide (Mylanta) 30 ml EVERY 4 HOURS PRN ORAL stomach upset/heartburn/indige 06/18/20 21:45 07/18/20 21:44 Albuterol/ Ipratropium (Albuterol/ Ipratropium) 3 ml Q4H PRN HHN Shortness of Breath 8/1/20 19:37 06/26/20 19:36 Apixaban (Eliquis) 5 mg BID GT 06/19/20 09:00 09/17/20 08:59 06/22/20 08:47 Ascorbic Acid (Vitamin C) 500 mg DAILY ORAL 06/19/20 09:00 07/19/20 08:59 06/22/20 08:46 Aspirin (ASA) 81 mg DAILY GT 06/19/20 09:00 08/03/20 08:59 06/22/20 08:46 Atorvastatin Calcium (Lipitor) 20 mg BEDTIME ORAL 06/19/20 21:00 09/17/20 20:59 06/21/20 21:13 Brimonidine Tartrate (Alphagan) 1 drop BID BOTH EYES 06/19/20 09:00 09/17/20 08:59 06/22/20 08:48 Calcium/Vitamin D (OsCal D) 1 tab BID ORAL 06/19/20 09:00 09/17/20 08:59 06/22/20 08:47 Carbamazepine (TEGretol) 200 mg Q12HR GT 06/19/20 09:00 07/19/20 08:59 06/22/20 08:47 Clonidine HCl (Catapres Tab) 0.1 mg Q4H PRN ORAL For High Blood Pressure 06/21/20 13:30 09/19/20 13:29 06/22/20 04:53 Dexamethasone Sodium Phosphate (Decadron 10mg/ ml Inj) 6 mg DAILY IV 06/19/20 09:00 09/17/20 08:59 06/22/20 08:48 Docusate Sodium (Colace) 100 mg THREE TIMES A DAY ORAL 06/20/20 09:30 07/20/20 09:29 06/22/20 08:46 Donepezil HCl (Aricept) 10 mg DAILY ORAL 06/19/20 09:00 07/19/20 08:59 06/22/20 08:46 Dorzolamide HCl (Trusopt) 1 drop TID BOTH EYES 06/19/20 09:00 07/19/20 08:59 06/22/20 08:48 Latanoprost (Xalatan) 1 drop BEDTIME BOTH EYES 06/19/20 21:00 07/19/20 20:59 06/21/20 21:15 Levetiracetam (Keppra) 500 mg TWICE A DAY ORAL 06/19/20 09:00 07/19/20 08:59 06/22/20 08:46 Memantine (Namenda) 10 mg TWICE A DAY ORAL 06/19/20 09:00 07/19/20 08:59 06/22/20 08:47 Metoprolol Tartrate (Lopressor) 50 mg EVERY 12 HOURS ORAL 06/19/20 09:00 09/17/20 08:59 06/22/20 08:46 Montelukast Sodium (Singulair) 10 mg DAILY ORAL 06/19/20 09:00 09/17/20 08:59 06/22/20 08:46 Multivitamins Therapeutic (Therapeutic Multivitamin) 1 ea DAILY ORAL 06/19/20 09:00 07/19/20 08:59 06/22/20 08:47 Nitroglycerin (Nitro-Bid) 1 inch DAILY TOPIC 06/19/20 09:00 07/19/20 08:59 06/22/20 08:47 Nitroglycerin (Ntg) 0.4 mg Q5M X 3 DOSES PRN SL Prn Chest Pain 06/18/20 22:00 07/18/20 21:59 Pantoprazole (Protonix) 40 mg DAILY ORAL 06/19/20 09:00 07/19/20 08:59 06/22/20 08:46 Sodium Chloride 1,000 ml @ 75 mls/hr [id number] IV 06/21/20 13:45 07/21/20 13:44 06/22/20 02:50 Assessment/Plan Assessment/Plan 1. COVID pneumonia. 2. Respiratory insufficiency. 3. Hypoxemia. 4. DNR 5. Hypokalemia. 6. Leukocytosis. 7. Possible sepsis. 8. Dementia. 9. Hypercholesterolemia. 10. sinus tachycardia/ hypertension PLAN care noted add beta cindy ID follow up and dc planning on decadron monitor oxygen needs- no owff monitor labs- hypotonic fluids care reviewed await further improvement conservative management impression, plan, and exam edited and reviewed in detail care discussed with Zane Mcguire MD Jun 22, 2020 10:59
--- NOTE | 2020-06-22 13:44 | Infectious Diseases Prog Note ---
Assessment/Plan Assessment/Plan A 1. COVID 19 pneumonia 2. hypertension 3. dementia 4. COPD 5. Leukocytosis P 1. continue dexamethasone 2. continue isolation Subjective ROS Limited/Unobtainable: Yes Constitutional: Reports: fever Allergies: Coded Allergies: NO KNOWN ALLERGIES (Unverified Allergy, Unknown, 10/21/15) Objective Last 24 Hour Vital Signs Date Time Temp Pulse Resp B/P (MAP) Pulse Ox O2 Delivery O2 Flow Rate FiO2 06/22/20 12:00 100.0 98 20 145/91 (109) 97 06/22/20 09:00 Room Air 06/22/20 08:47 174/107 06/22/20 08:46 114 174/107 06/22/20 08:00 99.9 114 20 174/107 (129) 99 06/22/20 04:53 160/98 06/22/20 04:00 98.7 101 21 47/89 (75) 95 06/22/20 00:30 99.5 113 19 139/91 (107) 96 06/22/20 00:17 99.5 06/22/20 00:00 102.0 115 21 149/97 (114) 96 06/21/20 21:12 96 153/99 06/21/20 21:00 Room Air 06/21/20 20:00 98.8 96 21 139/92 (108) 95 06/21/20 17:17 173/101 06/21/20 16:00 97.5 102 26 173/101 (125) 96 Height (Feet): 5 Height (Inches): 6.00 Weight (Pounds): 95 HEENT: mucous membranes moist Respiratory/Chest: no respiratory distress, other - on room air oxygen Cardiovascular: normal rate Abdomen: soft, non tender Extremities: no edema Neurologic/Psychiatric: unresponsiveness Current Medications Medications (Trade) Dose Ordered Sig/Johnson Route PRN Reason Start Time Stop Time Status Last Admin Dose Admin Acetaminophen (Tylenol) 650 mg Q4H PRN ORAL Temp >100.5/ mild pain (1-3) 06/18/20 21:45 07/18/20 21:44 06/21/20 23:47 Al Hydroxide/Mg Hydroxide (Mylanta) 30 ml EVERY 4 HOURS PRN ORAL stomach upset/heartburn/indige 06/18/20 21:45 07/18/20 21:44 Albuterol/ Ipratropium (Albuterol/ Ipratropium) 3 ml Q4H PRN HHN Shortness of Breath 06/21/20 19:37 06/26/20 19:36 Apixaban (Eliquis) 5 mg BID GT 06/19/20 09:00 09/17/20 08:59 06/22/20 08:47 Ascorbic Acid (Vitamin C) 500 mg DAILY ORAL 06/19/20 09:00 07/19/20 08:59 06/22/20 08:46 Aspirin (ASA) 81 mg DAILY GT 06/19/20 09:00 08/03/20 08:59 06/22/20 08:46 Atorvastatin Calcium (Lipitor) 20 mg BEDTIME ORAL 06/19/20 21:00 09/17/20 20:59 06/21/20 21:13 Brimonidine Tartrate (Alphagan) 1 drop BID BOTH EYES 06/19/20 09:00 09/17/20 08:59 06/22/20 08:48 Calcium/Vitamin D (OsCal D) 1 tab BID ORAL 06/19/20 09:00 09/17/20 08:59 06/22/20 08:47 Carbamazepine (TEGretol) 200 mg Q12HR GT 06/19/20 09:00 07/19/20 08:59 06/22/20 08:47 Clonidine HCl (Catapres Tab) 0.1 mg Q4H PRN ORAL For High Blood Pressure 06/21/20 13:30 09/19/20 13:29 06/22/20 04:53 Dexamethasone Sodium Phosphate (Decadron 10mg/ ml Inj) 6 mg DAILY IV 06/19/20 09:00 09/17/20 08:59 06/22/20 08:48 Docusate Sodium (Colace) 100 mg THREE TIMES A DAY ORAL 06/20/20 09:30 07/20/20 09:29 06/22/20 12:37 Donepezil HCl (Aricept) 10 mg DAILY ORAL 06/19/20 09:00 07/19/20 08:59 06/22/20 08:46 Dorzolamide HCl (Trusopt) 1 drop TID BOTH EYES 06/19/20 09:00 07/19/20 08:59 06/22/20 12:37 Latanoprost (Xalatan) 1 drop BEDTIME BOTH EYES 06/19/20 21:00 07/19/20 20:59 06/21/20 21:15 Levetiracetam (Keppra) 500 mg TWICE A DAY ORAL 06/19/20 09:00 07/19/20 08:59 06/22/20 08:46 Memantine (Namenda) 10 mg TWICE A DAY ORAL 06/19/20 09:00 07/19/20 08:59 06/22/20 08:47 Metoprolol Tartrate (Lopressor) 75 mg EVERY 12 HOURS ORAL 06/22/20 21:00 09/17/20 08:59 Montelukast Sodium (Singulair) 10 mg DAILY ORAL 06/19/20 09:00 09/17/20 08:59 06/22/20 08:46 Multivitamins Therapeutic (Therapeutic Multivitamin) 1 ea DAILY ORAL 06/19/20 09:00 07/19/20 08:59 06/22/20 08:47 Nitroglycerin (Nitro-Bid) 1 inch DAILY TOPIC 06/19/20 09:00 07/19/20 08:59 06/22/20 08:47 Nitroglycerin (Ntg) 0.4 mg Q5M X 3 DOSES PRN SL Prn Chest Pain 06/18/20 22:00 07/18/20 21:59 Pantoprazole (Protonix) 40 mg DAILY ORAL 06/19/20 09:00 07/19/20 08:59 06/22/20 08:46 Sodium Chloride 1,000 ml @ 75 mls/hr [id number] IV 06/21/20 13:45 07/21/20 13:44 06/22/20 02:50 Kobe Brito MD Jun 22, 2020 13:44
[2020-06-22] MEDS: Latanoprost 0.005% Opth 2.5ml Soln BOTH EYES SCH (21:20)
[2020-06-23 04:00] VITALS: BP 130/83
[2020-06-23 08:00] VITALS: BP 139/67
--- NOTE | 2020-06-23 08:48 | Pulmonology Progress Note ---
Subjective ROS Limited/Unobtainable: Yes Constitutional: Reports: fever Allergies: Coded Allergies: NO KNOWN ALLERGIES (Unverified Allergy, Unknown, 10/21/15) All Systems: reviewed and negative except above Subjective on isolation remains tachycardic off oxygen Objective Last 24 Hour Vital Signs Date Time Temp Pulse Resp B/P (MAP) Pulse Ox O2 Delivery O2 Flow Rate FiO2 06/23/20 04:00 98.2 116 18 130/83 (99) 90 06/22/20 21:21 106 143/89 06/22/20 20:24 Room Air 06/22/20 20:02 98.2 106 18 143/89 (107) 92 06/22/20 16:21 99.0 06/22/20 16:00 100.8 99 19 147/100 (116) 95 06/22/20 12:00 100.0 98 20 145/91 (109) 97 06/22/20 09:00 Room Air Intake and Output 06/22/20 06/23/20 19:00 07:00 Intake Total 900 ml 980 ml Balance 900 ml 980 ml Intake Oral 80 ml IV Total 900 ml 900 ml # Voids 4 Objective deferred as COVID+ Current Medications Medications (Trade) Dose Ordered Sig/Johnson Route PRN Reason Start Time Stop Time Status Last Admin Dose Admin Acetaminophen (Tylenol) 650 mg Q4H PRN ORAL Temp >100.5/ mild pain (1-3) 06/18/20 21:45 07/18/20 21:44 06/22/20 15:51 Al Hydroxide/Mg Hydroxide (Mylanta) 30 ml EVERY 4 HOURS PRN ORAL stomach upset/heartburn/indige 06/18/20 21:45 07/18/20 21:44 Albuterol/ Ipratropium (Albuterol/ Ipratropium) 3 ml Q4H PRN HHN Shortness of Breath 06/21/20 19:37 06/26/20 19:36 Apixaban (Eliquis) 5 mg BID GT 06/19/20 09:00 09/17/20 08:59 06/22/20 17:12 Ascorbic Acid (Vitamin C) 500 mg DAILY ORAL 06/19/20 09:00 07/19/20 08:59 06/22/20 08:46 Aspirin (ASA) 81 mg DAILY GT 06/19/20 09:00 08/03/20 08:59 06/22/20 08:46 Atorvastatin Calcium (Lipitor) 20 mg BEDTIME ORAL 06/19/20 21:00 09/17/20 20:59 06/22/20 21:21 Brimonidine Tartrate (Alphagan) 1 drop BID BOTH EYES 06/19/20 09:00 09/17/20 08:59 06/22/20 17:12 Calcium/Vitamin D (OsCal D) 1 tab BID ORAL 06/19/20 09:00 09/17/20 08:59 06/22/20 17:12 Carbamazepine (TEGretol) 200 mg Q12HR GT 06/19/20 09:00 07/19/20 08:59 06/22/20 21:20 Clonidine HCl (Catapres Tab) 0.1 mg Q4H PRN ORAL For High Blood Pressure 06/21/20 13:30 09/19/20 13:29 06/22/20 04:53 Dexamethasone Sodium Phosphate (Decadron 10mg/ ml Inj) 6 mg DAILY IV 06/19/20 09:00 09/17/20 08:59 06/22/20 08:48 Docusate Sodium (Colace) 100 mg THREE TIMES A DAY ORAL 06/20/20 09:30 07/20/20 09:29 06/22/20 17:12 Donepezil HCl (Aricept) 10 mg DAILY ORAL 06/19/20 09:00 07/19/20 08:59 06/22/20 08:46 Dorzolamide HCl (Trusopt) 1 drop TID BOTH EYES 06/19/20 09:00 07/19/20 08:59 06/22/20 17:12 Latanoprost (Xalatan) 1 drop BEDTIME BOTH EYES 06/19/20 21:00 07/19/20 20:59 06/22/20 21:20 Levetiracetam (Keppra) 500 mg TWICE A DAY ORAL 06/19/20 09:00 07/19/20 08:59 06/22/20 17:12 Memantine (Namenda) 10 mg TWICE A DAY ORAL 06/19/20 09:00 07/19/20 08:59 06/22/20 17:12 Metoprolol Tartrate (Lopressor) 75 mg EVERY 12 HOURS ORAL 06/22/20:00 09/17/20 08:59 06/22/20 21:21 Montelukast Sodium (Singulair) 10 mg DAILY ORAL 06/19/20 09:00 09/17/20 08:59 06/22/20 08:46 Multivitamins Therapeutic (Therapeutic Multivitamin) 1 ea DAILY ORAL 06/19/20 09:00 07/19/20 08:59 06/22/20 08:47 Nitroglycerin (Nitro-Bid) 1 inch DAILY TOPIC 06/19/20 09:00 07/19/20 08:59 06/22/20 08:47 Nitroglycerin (Ntg) 0.4 mg Q5M X 3 DOSES PRN SL Prn Chest Pain 06/18/20 22:00 07/18/20 21:59 Pantoprazole (Protonix) 40 mg DAILY ORAL 06/19/20 09:00 07/19/20 08:59 06/22/20 08:46 Sodium Chloride 1,000 ml @ 75 mls/hr [id number] IV 06/21/20 13:45 07/21/20 13:44 06/23/20 05:12 Assessment/Plan Assessment/Plan 1. COVID pneumonia. 2. Respiratory insufficiency. 3. Hypoxemia. 4. DNR 5. Hypokalemia. 6. Leukocytosis. 7. Possible sepsis. 8. Dementia. 9. Hypercholesterolemia. 10. sinus tachycardia/ hypertension PLAN care noted maintain beta cindy ID follow up and dc planning on decadron ? dc soon monitor oxygen needs- appears stable monitor labs- hypotonic fluids care reviewed await further improvement conservative management with DNR status impression, plan, and exam edited and reviewed in detail care discussed with Zane Mcguire MD Jun 23, 2020 08:48
--- NOTE | 2020-06-23 08:55 | General Progress Note ---
Assessment/Plan Problem List: (1) COVID-19 ICD Codes: U07.1 - COVID-19 SNOMED: 652051512 (2) Pneumonia ICD Codes: J18.9 - Pneumonia, unspecified organism SNOMED: 592800193, 447502629 (3) Encephalopathy ICD Codes: G93.40 - Encephalopathy, unspecified SNOMED: 51636729 (4) Leukocytosis ICD Codes: D72.829 - Elevated white blood cell count, unspecified SNOMED: 238420122, 476621983 (5) Hypernatremia ICD Codes: E87.0 - Hyperosmolality and hypernatremia SNOMED: 756413348 (6) ACS (acute coronary syndrome) ICD Codes: I24.9 - Acute ischemic heart disease, unspecified SNOMED: 320360098 Status: stable Assessment/Plan: steroids monitor off abx follow labs monitor cxr may need hypotonic fluids cont inhalers pulm and ID noted. cont dvt/stress ulcer prophylaxis Subjective Date patient seen: Jun 22, 2020 ROS Limited/Unobtainable: No Constitutional: Reports: malaise, weakness HEENT: Reports: no symptoms Cardiovascular: Reports: no symptoms Respiratory: Reports: cough, shortness of breath Gastrointestinal/Abdominal: Reports: no symptoms Genitourinary: Reports: no symptoms Neurologic/Psychiatric: Reports: anxiety Endocrine: Reports: no symptoms Hematologic/Lymphatic: Reports: no symptoms Allergies: Coded Allergies: NO KNOWN ALLERGIES (Unverified Allergy, Unknown, 10/21/15) All Systems: reviewed and negative except above Subjective no events. stable. no fevers. no sob. on steroids. Labs pending for this am. confused. stable off o2. d/w staff. Objective Last 24 Hour Vital Signs Date Time Temp Pulse Resp B/P (MAP) Pulse Ox O2 Delivery O2 Flow Rate FiO2 06/23/20 04:00 98.2 116 18 130/83 (99) 90 06/22/20 21:21 106 143/89 06/22/20 20:24 Room Air 06/22/20 20:02 98.2 106 18 143/89 (107) 92 06/22/20 16:21 99.0 06/22/20 16:00 100.8 99 19 147/100 (116) 95 06/22/20 12:00 100.0 98 20 145/91 (109) 97 8/2/20 09:00 Room Air Intake and Output 06/22/20 06/23/20 19:00 07:00 Intake Total 900 ml 980 ml Balance 900 ml 980 ml Intake Oral 80 ml IV Total 900 ml 900 ml # Voids 4 Height (Feet): 5 Height (Inches): 6.00 Weight (Pounds): 95 General Appearance: WD/WN, alert EENT: PERRL/EOMI, normal ENT inspection Neck: non-tender, normal alignment, supple Cardiovascular: normal peripheral pulses, normal rate Respiratory/Chest: chest wall non-tender, lungs clear, normal breath sounds Abdomen: normal bowel sounds, non tender, soft, no organomegaly Edema: no edema noted Arm (L), no edema noted 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
--- NOTE | 2020-06-23 08:59 | General Progress Note ---
Assessment/Plan Problem List: (1) COVID-19 ICD Codes: U07.1 - COVID-19 SNOMED: 060697347 (2) Pneumonia ICD Codes: J18.9 - Pneumonia, unspecified organism SNOMED: 868730682, 972568316 (3) Encephalopathy ICD Codes: G93.40 - Encephalopathy, unspecified SNOMED: 86177849 (4) Leukocytosis ICD Codes: D72.829 - Elevated white blood cell count, unspecified SNOMED: 149319444, 845725617 (5) Hypernatremia ICD Codes: E87.0 - Hyperosmolality and hypernatremia SNOMED: 989886389 (6) ACS (acute coronary syndrome) ICD Codes: I24.9 - Acute ischemic heart disease, unspecified SNOMED: 441413911 Status: stable Assessment/Plan: steroids monitor off abx follow labs monitor cxr D5w ordered cough rx cont inhalers pulm and ID noted. cont dvt/stress ulcer prophylaxis Subjective Constitutional: Reports: malaise, weakness HEENT: Reports: no symptoms Cardiovascular: Reports: no symptoms Respiratory: Reports: cough, shortness of breath Gastrointestinal/Abdominal: Reports: no symptoms Genitourinary: Reports: no symptoms Neurologic/Psychiatric: Reports: depressed Endocrine: Reports: no symptoms Hematologic/Lymphatic: Reports: anemia Allergies: Coded Allergies: NO KNOWN ALLERGIES (Unverified Allergy, Unknown, 10/21/15) All Systems: reviewed and negative except above Subjective no events. stable. no fevers. no sob. on steroids. Labs reviewed. confused. stable off o2. cant stop coughing. d/w staff. Objective Last 24 Hour Vital Signs Date Time Temp Pulse Resp B/P (MAP) Pulse Ox O2 Delivery O2 Flow Rate FiO2 06/23/20 04:00 98.2 116 18 130/83 (99) 90 06/22/20 21:21 106 143/89 06/22/20 20:24 Room Air 06/22/20 20:02 98.2 106 18 143/89 (107) 92 06/22/20 16:21 99.0 06/22/20 16:00 100.8 99 19 147/100 (116) 95 06/22/20 12:00 100.0 98 20 145/91 (109) 97 06/22/20 09:00 Room Air Intake and Output 06/22/20 06/23/20 19:00 07:00 Intake Total 900 ml 980 ml Balance 900 ml 980 ml Intake Oral 80 ml IV Total 900 ml 900 ml # Voids 4 Height (Feet): 5 Height (Inches): 6.00 Weight (Pounds): 95 General Appearance: WD/WN, alert EENT: PERRL/EOMI Neck: supple Cardiovascular: normal peripheral pulses, normal rate, regular rhythm Respiratory/Chest: chest wall non-tender, lungs clear Abdomen: normal bowel sounds, non tender, soft, no organomegaly Edema: no edema noted Arm (L), no edema noted 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
[2020-06-23] MEDS: Albuterol Sulfate Syrup 2mg/5ml ORAL SCH ×2 (09:00→21:04)
[2020-06-23] MEDS: Dorzolamide 2% 10ml Btl BOTH EYES SCH ×3 (09:00→18:04)
[2020-06-23] MEDS: Brimonidine 0.2% Opth Sol BOTH EYES SCH ×2 (09:00→18:04)
[2020-06-23] MEDS ORDERED: Promethazine/Codeine 5ml UD ORAL PRN (09:00)
[2020-06-23] MEDS: Montelukast 10mg tablet ORAL SCH (09:08)
[2020-06-23] MEDS: Docusate 100mg/10ml Liq ORAL SCH ×3 (09:08→18:03)
[2020-06-23] MEDS: Eliquis 5mg tablet GT SCH ×2 (09:09→18:03)
[2020-06-23] MEDS: Multivitamin w/Minerals tab ORAL SCH (09:09)
[2020-06-23] MEDS: Ascorbic Acid 500mg tab ORAL SCH (09:09)
[2020-06-23] MEDS: Aspirin Baby 81mg GT SCH (09:09)
[2020-06-23] MEDS: carBAMazepine 200mg tab GT SCH ×2 (09:09→21:04)
[2020-06-23] MEDS: Donepezil 10mg tab ORAL SCH (09:09)
[2020-06-23] MEDS: Memantine 10mg tab ORAL SCH ×2 (09:09→18:03)
[2020-06-23] MEDS: Nitroglycerin 2% oint pkt TOPIC SCH (09:10)
[2020-06-23] MEDS: Calcium Carbonate 500mg w/Vit D 200iu tab ORAL SCH ×2 (09:10→18:04)
[2020-06-23] MEDS: dexAMETHasone 10mg/ml Inj IV SCH (09:10)
[2020-06-23] MEDS: levETIRAcetam 500mg/5ml Liquid ORAL SCH ×2 (09:10→18:04)
--- NOTE | 2020-06-23 11:12 | Infectious Diseases Prog Note ---
Assessment/Plan Assessment/Plan antibiotics : dexamethasone A 1. COVID 19 pneumonia on room air, O2 saturation 97 percent 2. hypertension 3. dementia 4. COPD 5. leucocytosis likely secondary to steroids P 1. continue dexamethasone day 5 2. will follow up cultures 3. continue isolation Subjective Constitutional: Denies: fever, chills Respiratory: Reports: dry cough; Denies: shortness of breath Gastrointestinal/Abdominal: Denies: nausea, vomiting, diarrhea Musculoskeletal: Denies: pain Allergies: Coded Allergies: NO KNOWN ALLERGIES (Unverified Allergy, Unknown, 10/21/15) Objective Last 24 Hour Vital Signs Date Time Temp Pulse Resp B/P (MAP) Pulse Ox O2 Delivery O2 Flow Rate FiO2 06/23/20 09:10 130/83 06/23/20 09:09 100 130/83 06/23/20 09:00 Room Air 06/23/20 08:00 98.2 100 18 139/67 (91) 92 06/23/20 04:00 98.2 116 18 130/83 (99) 90 06/22/20 21:21 106 143/89 06/22/20 20:24 Room Air 06/22/20 20:02 98.2 106 18 143/89 (107) 92 06/22/20 16:21 99.0 06/22/20 16:00 100.8 99 19 147/100 (116) 95 06/22/20 12:00 100.0 98 20 145/91 (109) 97 Height (Feet): 5 Height (Inches): 6.00 Weight (Pounds): 95 Current Medications Medications (Trade) Dose Ordered Sig/Johnson Route PRN Reason Start Time Stop Time Status Last Admin Dose Admin Acetaminophen (Tylenol) 650 mg Q4H PRN ORAL Temp >100.5/ mild pain (1-3) 06/18/20 21:45 07/18/20 21:44 06/22/20 15:51 Al Hydroxide/Mg Hydroxide (Mylanta) 30 ml EVERY 4 HOURS PRN ORAL stomach upset/heartburn/indige 06/18/20 21:45 07/18/20 21:44 Albuterol/ Ipratropium (Albuterol/ Ipratropium) 3 ml Q4H PRN HHN Shortness of Breath 06/21/20 19:37 8/6/20 19:36 Apixaban (Eliquis) 5 mg BID GT 06/19/20 09:00 09/17/20 08:59 06/23/20 09:09 Ascorbic Acid (Vitamin C) 500 mg DAILY ORAL 06/19/20 09:00 07/19/20 08:59 06/23/20 09:09 Aspirin (ASA) 81 mg DAILY GT 06/19/20 09:00 08/03/20 08:59 06/23/20 09:09 Atorvastatin Calcium (Lipitor) 20 mg BEDTIME ORAL 06/19/20 21:00 09/17/20 20:59 06/22/20 21:21 Brimonidine Tartrate (Alphagan) 1 drop BID BOTH EYES 06/19/20 09:00 09/17/20 08:59 06/23/20 09:00 Calcium/Vitamin D (OsCal D) 1 tab BID ORAL 06/19/20 09:00 09/17/20 08:59 06/23/20 09:10 Carbamazepine (TEGretol) 200 mg Q12HR GT 06/19/20 09:00 07/19/20 08:59 06/23/20 09:09 Clonidine HCl (Catapres Tab) 0.1 mg Q4H PRN ORAL For High Blood Pressure 06/21/20 13:30 09/19/20 13:29 06/22/20 04:53 Dexamethasone Sodium Phosphate (Decadron 10mg/ ml Inj) 6 mg DAILY IV 06/19/20 09:00 09/17/20 08:59 06/23/20 09:10 Dextrose 1,000 ml @ 75 mls/hr [id number] IV 06/23/20 09:00 07/23/20 08:59 06/23/20 09:11 Docusate Sodium (Colace) 100 mg THREE TIMES A DAY ORAL 06/20/20 09:30 07/20/20 09:29 06/23/20 09:08 Donepezil HCl (Aricept) 10 mg DAILY ORAL 06/19/20 09:00 07/19/20 08:59 06/23/20 09:09 Dorzolamide HCl (Trusopt) 1 drop TID BOTH EYES 06/19/20 09:00 07/19/20 08:59 06/23/20 09:00 Latanoprost (Xalatan) 1 drop BEDTIME BOTH EYES 06/19/20 21:00 07/19/20 20:59 06/22/20 21:20 Levetiracetam (Keppra) 500 mg TWICE A DAY ORAL 06/19/20 09:00 07/19/20 08:59 06/23/20 09:10 Memantine (Namenda) 10 mg TWICE A DAY ORAL 06/19/20 09:00 07/19/20 08:59 06/23/20 09:09 Metoprolol Tartrate (Lopressor) 75 mg EVERY 12 HOURS ORAL 06/22/20 21:00 09/17/20 08:59 06/23/20 09:09 Montelukast Sodium (Singulair) 10 mg DAILY ORAL 06/19/20 09:00 09/17/20 08:59 06/23/20 09:08 Multivitamins Therapeutic (Therapeutic Multivitamin) 1 ea DAILY ORAL 06/19/20 09:00 07/19/20 08:59 06/23/20 09:09 Nitroglycerin (Nitro-Bid) 1 inch DAILY TOPIC 06/19/20 09:00 07/19/20 08:59 06/23/20 09:10 Nitroglycerin (Ntg) 0.4 mg Q5M X 3 DOSES PRN SL Prn Chest Pain 06/18/20 22:00 07/18/20 21:59 Pantoprazole (Protonix) 40 mg DAILY ORAL 06/19/20 09:00 07/19/20 08:59 06/23/20 09:09 Promethazine HCl/ Codeine (Phenergan with Codeine) 5 ml Q4H PRN ORAL For Cough 06/23/20 09:00 07/23/20 08:59 Jason Manuel MD Jun 23, 2020 11:11
[2020-06-23 12:00] VITALS: BP 158/90
[2020-06-23 16:00] VITALS: BP 124/77
[2020-06-23 20:00] VITALS: BP 109/77
[2020-06-23] MEDS: Latanoprost 0.005% Opth 2.5ml Soln BOTH EYES SCH (21:04)
[2020-06-24 00:05] VITALS: BP 82/51
[2020-06-24 04:35] VITALS: BP 89/56
[2020-06-24 08:00] VITALS: BP 118/75
[2020-06-24 08:54] LABS: ANION GAP 10 mmol/L (5-15); BLOOD UREA NITROGEN 11 mg/dL (7-18); CALCIUM 8.5 MG/DL (8.5-10.1); CARBON DIOXIDE 20 MMOL/L (21-32); CHLORIDE 96 MMOL/L (98-107); CREATININE 0.8 MG/DL (0.55-1.30); SODIUM 126 MMOL/L (136-145)
--- NOTE | 2020-06-24 09:08 | General Progress Note ---
Assessment/Plan Problem List: (1) COVID-19 ICD Codes: U07.1 - COVID-19 SNOMED: 933920169 (2) Pneumonia ICD Codes: J18.9 - Pneumonia, unspecified organism SNOMED: 095043297, 838430440 (3) Encephalopathy ICD Codes: G93.40 - Encephalopathy, unspecified SNOMED: 28628537 (4) Leukocytosis ICD Codes: D72.829 - Elevated white blood cell count, unspecified SNOMED: 060293345, 010766920 (5) Hypernatremia ICD Codes: E87.0 - Hyperosmolality and hypernatremia SNOMED: 253209190 (6) ACS (acute coronary syndrome) ICD Codes: I24.9 - Acute ischemic heart disease, unspecified SNOMED: 690714582 Status: stable Assessment/Plan: steroids monitor off abx monitor cxr repeat labs dc d5w changed to d5ns encourage po cough rx cont inhalers pulm and ID noted. cont dvt/stress ulcer prophylaxis Subjective ROS Limited/Unobtainable: Yes Constitutional: Reports: malaise, weakness HEENT: Reports: no symptoms Cardiovascular: Reports: no symptoms Respiratory: Reports: cough Gastrointestinal/Abdominal: Reports: no symptoms Genitourinary: Reports: no symptoms Neurologic/Psychiatric: Reports: depressed, emotional problems, pre-existing deficit Endocrine: Reports: no symptoms Hematologic/Lymphatic: Reports: no symptoms Allergies: Coded Allergies: NO KNOWN ALLERGIES (Unverified Allergy, Unknown, 10/21/15) All Systems: reviewed and negative except above Subjective no events. w/o complaints. awake but weak and withdrawn. follows simple commands but is not verbal. not eating. low sodium noted. on d5w Objective Last 24 Hour Vital Signs Date Time Temp Pulse Resp B/P (MAP) Pulse Ox O2 Delivery O2 Flow Rate FiO2 06/24/20 08:00 97.5 94 18 118/75 (89) 96 06/24/20 04:35 98.6 110 20 89/56 (67) 94 06/24/20 00:05 98.4 103 18 82/51 (61) 93 06/23/20 21:51 99.0 06/23/20 21:00 116 109/77 06/23/20 20:08 Room Air 06/23/20 20:00 100.8 116 17 109/77 (88) 94 8/3/20 16:00 97.9 113 18 124/77 (93) 93 06/23/20 12:00 97.9 112 18 158/90 (112) 92 06/23/20 09:10 130/83 06/23/20 09:09 100 130/83 Intake and Output 06/23/20 06/24/20 19:00 07:00 Intake Total 950 ml 900 ml Balance 950 ml 900 ml Intake Oral 200 ml IV Total 750 ml 900 ml # Voids 2 1 Laboratory Tests 06/24/20 04:00: Sodium Level 126L, Potassium Level 5.0, Chloride Level 96L, Carbon Dioxide Level 20L, Anion Gap 10, Blood Urea Nitrogen 11, Creatinine 0.8, Estimat Glomerular Filtration Rate > 60, Glucose Level 78, Calcium Level 8.5 Height (Feet): 5 Height (Inches): 6.00 Weight (Pounds): 95 Objective General Appearance: WD/WN, alert EENT: PERRL/EOMI Neck: supple Cardiovascular: normal peripheral pulses, normal rate, regular rhythm Respiratory/Chest: chest wall non-tender, lungs clear Abdomen: normal bowel sounds, non tender, soft, no organomegaly Edema: no edema noted Arm (L), no edema noted 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
[2020-06-24] MEDS: Donepezil 10mg tab ORAL SCH (09:32)
[2020-06-24] MEDS: Multivitamin w/Minerals tab ORAL SCH (09:33)
[2020-06-24] MEDS: Docusate 100mg/10ml Liq ORAL SCH ×3 (09:33→18:01)
[2020-06-24] MEDS: Calcium Carbonate 500mg w/Vit D 200iu tab ORAL SCH ×2 (09:33→18:01)
[2020-06-24] MEDS: Nitroglycerin 2% oint pkt TOPIC SCH (09:33)
[2020-06-24] MEDS: Aspirin Baby 81mg GT SCH (09:33)
[2020-06-24] MEDS: Ascorbic Acid 500mg tab ORAL SCH (09:33)
[2020-06-24] MEDS: levETIRAcetam 500mg/5ml Liquid ORAL SCH ×2 (09:33→18:01)
[2020-06-24] MEDS: Memantine 10mg tab ORAL SCH ×2 (09:34→18:01)
[2020-06-24] MEDS: carBAMazepine 200mg tab GT SCH ×2 (09:34→21:03)
[2020-06-24] MEDS: Eliquis 5mg tablet GT SCH ×2 (09:35→18:01)
[2020-06-24] MEDS: D5NS 1,000 ML IV SCH ×2 (09:41→21:04)
[2020-06-24] MEDS: Dorzolamide 2% 10ml Btl BOTH EYES SCH ×3 (09:57→18:10)
[2020-06-24] MEDS: Brimonidine 0.2% Opth Sol BOTH EYES SCH ×2 (09:58→18:10)
[2020-06-24] MEDS: Montelukast 10mg tablet ORAL SCH (10:25)
[2020-06-24 10:42] LABS: ANION GAP 8 mmol/L (5-15); BLOOD UREA NITROGEN 9 mg/dL (7-18); CALCIUM 8.2 MG/DL (8.5-10.1); CARBON DIOXIDE 26 MMOL/L (21-32); CHLORIDE 101 MMOL/L (98-107); CREATININE 0.7 MG/DL (0.55-1.30); POTASSIUM 2.3 MMOL/L (3.5-5.1); SODIUM 135 MMOL/L (136-145)
--- NOTE | 2020-06-24 10:50 | Infectious Diseases Prog Note ---
Assessment/Plan Assessment/Plan antibiotics : dexamethasone A 1. COVID 19 pneumonia on room air, O2 saturation 96 percent 2. hypertension 3. dementia 4. COPD 5. leucocytosis likely secondary to steroids P 1. continue dexamethasone day 6 2. will follow up cultures 3. continue isolation Subjective ROS Limited/Unobtainable: Yes Allergies: Coded Allergies: NO KNOWN ALLERGIES (Unverified Allergy, Unknown, 10/21/15) Objective Last 24 Hour Vital Signs Date Time Temp Pulse Resp B/P (MAP) Pulse Ox O2 Delivery O2 Flow Rate FiO2 06/24/20 09:34 94 118/75 06/24/20 09:33 118/75 06/24/20 08:00 97.5 94 18 118/75 (89) 96 06/24/20 04:35 98.6 110 20 89/56 (67) 94 06/24/20 00:05 98.4 103 18 82/51 (61) 93 06/23/20 21:51 99.0 06/23/20 21:00 116 109/77 06/23/20 20:08 Room Air 06/23/20 20:00 100.8 116 17 109/77 (88) 94 06/23/20 16:00 97.9 113 18 124/77 (93) 93 06/23/20 12:00 97.9 112 18 158/90 (112) 92 Height (Feet): 5 Height (Inches): 6.00 Weight (Pounds): 95 Laboratory Tests Test 06/24/20 04:00 06/24/20 10:00 Sodium Level 126 MMOL/L (136-145) L 135 MMOL/L (136-145) L Potassium Level 5.0 MMOL/L (3.5-5.1) 2.3 MMOL/L (3.5-5.1) #*L Chloride Level 96 MMOL/L (98-107) L 101 MMOL/L (98-107) Carbon Dioxide Level 20 MMOL/L (21-32) L 26 MMOL/L (21-32) Anion Gap 10 mmol/L (5-15) 8 mmol/L (5-15) Blood Urea Nitrogen 11 mg/dL (7-18) 9 mg/dL (7-18) Creatinine 0.8 MG/DL (0.55-1.30) 0.7 MG/DL (0.55-1.30) Estimat Glomerular Filtration Rate > 60 mL/min (>60) > 60 mL/min (>60) Glucose Level 78 MG/DL (74-106) 106 MG/DL (74-106) Calcium Level 8.5 MG/DL (8.5-10.1) 8.2 MG/DL (8.5-10.1) L Current Medications Medications (Trade) Dose Ordered Sig/Johnson Route PRN Reason Start Time Stop Time Status Last Admin Dose Admin Acetaminophen (Tylenol) 650 mg Q4H PRN ORAL Temp >100.5/ mild pain (1-3) 06/18/20 21:45 07/18/20 21:44 06/23/20 21:05 Al Hydroxide/Mg Hydroxide (Mylanta) 30 ml EVERY 4 HOURS PRN ORAL stomach upset/heartburn/indige 06/18/20 21:45 07/18/20 21:44 Albuterol/ Ipratropium (Albuterol/ Ipratropium) 3 ml Q4H PRN HHN Shortness of Breath 06/21/20 19:37 06/26/20 19:36 Apixaban (Eliquis) 5 mg BID GT 06/19/20 09:00 09/17/20 08:59 06/24/20 09:35 Ascorbic Acid (Vitamin C) 500 mg DAILY ORAL 06/19/20 09:00 07/19/20 08:59 06/24/20 09:33 Aspirin (ASA) 81 mg DAILY GT 06/19/20 09:00 08/03/20 08:59 06/24/20 09:33 Atorvastatin Calcium (Lipitor) 20 mg BEDTIME ORAL 06/19/20 21:00 09/17/20 20:59 06/23/20 21:05 Brimonidine Tartrate (Alphagan) 1 drop BID BOTH EYES 06/19/20 09:00 09/17/20 08:59 06/24/20 09:58 Calcium/Vitamin D (OsCal D) 1 tab BID ORAL 06/19/20 09:00 09/17/20 08:59 06/24/20 09:33 Carbamazepine (TEGretol) 200 mg Q12HR GT 06/19/20 09:00 07/19/20 08:59 06/24/20 09:34 Clonidine HCl (Catapres Tab) 0.1 mg Q4H PRN ORAL For High Blood Pressure 06/21/20 13:30 09/19/20 13:29 06/22/20 04:53 Dexamethasone Sodium Phosphate (Decadron 10mg/ ml Inj) 6 mg DAILY IV 06/19/20 09:00 09/17/20 08:59 06/23/20 09:10 Dextrose/Sodium Chloride 1,000 ml @ 75 mls/hr [id number] IV 06/24/20 09:15 07/24/20 09:14 06/24/20 09:41 Docusate Sodium (Colace) 100 mg THREE TIMES A DAY ORAL 06/20/20 09:30 07/20/20 09:29 06/24/20 09:33 Donepezil HCl (Aricept) 10 mg DAILY ORAL 06/19/20 09:00 07/19/20 08:59 06/24/20 09:32 Dorzolamide HCl (Trusopt) 1 drop TID BOTH EYES 06/19/20 09:00 07/19/20 08:59 06/24/20 09:57 Latanoprost (Xalatan) 1 drop BEDTIME BOTH EYES 06/19/20 21:00 07/19/20 20:59 06/23/20 21:04 Levetiracetam (Keppra) 500 mg TWICE A DAY ORAL 06/19/20 09:00 07/19/20 08:59 06/24/20 09:33 Memantine (Namenda) 10 mg TWICE A DAY ORAL 06/19/20 09:00 07/19/20 08:59 06/24/20 09:34 Metoprolol Tartrate (Lopressor) 75 mg EVERY 12 HOURS ORAL 06/22/20 21:00 09/17/20 08:59 06/24/20 09:34 Montelukast Sodium (Singulair) 10 mg DAILY ORAL 06/19/20 09:00 09/17/20 08:59 06/24/20 10:25 Multivitamins Therapeutic (Therapeutic Multivitamin) 1 ea DAILY ORAL 06/19/20 09:00 07/19/20 08:59 06/24/20 09:33 Nitroglycerin (Nitro-Bid) 1 inch DAILY TOPIC 06/19/20 09:00 07/19/20 08:59 06/24/20 09:33 Nitroglycerin (Ntg) 0.4 mg Q5M X 3 DOSES PRN SL Prn Chest Pain 06/18/20 22:00 07/18/20 21:59 Pantoprazole (Protonix) 40 mg DAILY ORAL 06/19/20 09:00 07/19/20 08:59 06/24/20 09:34 Promethazine HCl/ Codeine (Phenergan with Codeine) 5 ml Q4H PRN ORAL For Cough 06/23/20 09:00 07/23/20 08:59 06/23/20 21:34 Jason Manuel MD Jun 24, 2020 10:50
[2020-06-24] MEDS: dexAMETHasone 10mg/ml Inj IV SCH (10:59)
[2020-06-24 11:56] VITALS: BP 121/71
[2020-06-24 16:00] VITALS: BP 115/69
[2020-06-24 20:07] VITALS: BP 136/86
[2020-06-24] MEDS: Latanoprost 0.005% Opth 2.5ml Soln BOTH EYES SCH (21:03)
[2020-06-25 00:03] VITALS: BP 125/85
[2020-06-25 04:22] VITALS: BP 141/90
[2020-06-25 08:00] VITALS: BP 141/72
[2020-06-25] MEDS: Docusate 100mg/10ml Liq ORAL SCH ×3 (09:00→17:20)
[2020-06-25] MEDS: Montelukast 10mg tablet ORAL SCH (09:00)
[2020-06-25] MEDS: Memantine 10mg tab ORAL SCH ×2 (09:00→17:19)
[2020-06-25] MEDS: Calcium Carbonate 500mg w/Vit D 200iu tab ORAL SCH ×2 (09:00→17:20)
[2020-06-25] MEDS: Multivitamin w/Minerals tab ORAL SCH (09:01)
[2020-06-25] MEDS: Nitroglycerin 2% oint pkt TOPIC SCH (09:01)
[2020-06-25] MEDS: Donepezil 10mg tab ORAL SCH (09:01)
[2020-06-25] MEDS: Ascorbic Acid 500mg tab ORAL SCH (09:01)
[2020-06-25] MEDS: levETIRAcetam 500mg/5ml Liquid ORAL SCH ×2 (09:01→17:20)
[2020-06-25] MEDS: carBAMazepine 200mg tab GT SCH ×2 (09:01→21:36)
[2020-06-25] MEDS: Aspirin Baby 81mg GT SCH (09:01)
[2020-06-25] MEDS: Eliquis 5mg tablet GT SCH ×2 (09:01→17:20)
[2020-06-25] MEDS: dexAMETHasone 10mg/ml Inj IV SCH (09:01)
[2020-06-25] MEDS: Dorzolamide 2% 10ml Btl BOTH EYES SCH ×3 (09:02→17:20)
[2020-06-25] MEDS: Brimonidine 0.2% Opth Sol BOTH EYES SCH ×2 (09:02→17:20)
--- NOTE | 2020-06-25 10:48 | Infectious Diseases Prog Note ---
Assessment/Plan Assessment/Plan antibiotics : dexamethasone A 1. COVID 19 pneumonia on room air, O2 saturation 96 percent 2. hypertension 3. dementia 4. COPD 5. leucocytosis likely secondary to steroids P 1. continue dexamethasone day 7 2. will follow up cultures 3. continue isolation Subjective ROS Limited/Unobtainable: Yes Allergies: Coded Allergies: NO KNOWN ALLERGIES (Unverified Allergy, Unknown, 10/21/15) Objective Last 24 Hour Vital Signs Date Time Temp Pulse Resp B/P (MAP) Pulse Ox O2 Delivery O2 Flow Rate FiO2 06/25/20 09:01 141/72 06/25/20 09:00 Room Air 06/25/20 09:00 96 141/72 06/25/20 08:00 98.2 96 19 141/72 (95) 94 06/25/20 07:45 96 18 95 Room Air 06/25/20 04:22 98.1 82 22 141/90 (107) 95 06/25/20 00:03 98.1 94 22 125/85 (98) 94 06/24/20 21:04 84 136/86 06/24/20 20:30 84 18 94 Room Air 06/24/20 20:10 Room Air 06/24/20 20:07 98.4 89 22 136/86 (103) 96 06/24/20 17:14 97 20 98 Room Air 21 101 20 94 06/24/20 16:00 97.6 86 18 115/69 (84) 96 06/24/20 11:56 98.0 90 18 121/71 (88) 96 Height (Feet): 5 Height (Inches): 6.00 Weight (Pounds): 92 Current Medications Medications (Trade) Dose Ordered Sig/Johnson Route PRN Reason Start Time Stop Time Status Last Admin Dose Admin Acetaminophen (Tylenol) 650 mg Q4H PRN ORAL Temp >100.5/ mild pain (1-3) 06/18/20 21:45 07/18/20 21:44 06/23/20 21:05 Al Hydroxide/Mg Hydroxide (Mylanta) 30 ml EVERY 4 HOURS PRN ORAL stomach upset/heartburn/indige 06/18/20 21:45 07/18/20 21:44 Albuterol/ Ipratropium (Albuterol/ Ipratropium) 3 ml Q4H PRN HHN Shortness of Breath 06/21/20 19:37 06/26/20 19:36 06/24/20 17:04 Apixaban (Eliquis) 5 mg BID GT 06/19/20 09:00 09/17/20 08:59 06/25/20 09:01 Ascorbic Acid (Vitamin C) 500 mg DAILY ORAL 06/19/20 09:00 07/19/20 08:59 06/25/20 09:01 Aspirin (ASA) 81 mg DAILY GT 06/19/20 09:00 08/03/20 08:59 06/25/20 09:01 Atorvastatin Calcium (Lipitor) 20 mg BEDTIME ORAL 06/19/20 21:00 09/17/20 20:59 06/24/20 21:04 Brimonidine Tartrate (Alphagan) 1 drop BID BOTH EYES 06/19/20 09:00 09/17/20 08:59 06/25/20 09:02 Calcium/Vitamin D (OsCal D) 1 tab BID ORAL 06/19/20 09:00 09/17/20 08:59 06/25/20 09:00 Carbamazepine (TEGretol) 200 mg Q12HR GT 06/19/20 09:00 07/19/20 08:59 06/25/20 09:01 Clonidine HCl (Catapres Tab) 0.1 mg Q4H PRN ORAL For High Blood Pressure 06/21/20 13:30 09/19/20 13:29 06/22/20 04:53 Dexamethasone Sodium Phosphate (Decadron 10mg/ ml Inj) 6 mg DAILY IV 06/19/20 09:00 09/17/20 08:59 06/25/20 09:01 Dextrose/Sodium Chloride 1,000 ml @ 75 mls/hr [id number] IV 06/24/20 09:15 07/24/20 09:14 06/24/20 21:04 Docusate Sodium (Colace) 100 mg THREE TIMES A DAY ORAL 06/20/20 09:30 07/20/20 09:29 06/25/20 09:00 Donepezil HCl (Aricept) 10 mg DAILY ORAL 06/19/20 09:00 07/19/20 08:59 06/25/20 09:01 Dorzolamide HCl (Trusopt) 1 drop TID BOTH EYES 06/19/20 09:00 07/19/20 08:59 06/25/20 09:02 Latanoprost (Xalatan) 1 drop BEDTIME BOTH EYES 06/19/20 21:00 07/19/20 20:59 06/24/20 21:03 Levetiracetam (Keppra) 500 mg TWICE A DAY ORAL 06/19/20 09:00 07/19/20 08:59 06/25/20 09:01 Memantine (Namenda) 10 mg TWICE A DAY ORAL 06/19/20 09:00 07/19/20 08:59 06/25/20 09:00 Metoprolol Tartrate (Lopressor) 75 mg EVERY 12 HOURS ORAL 06/22/20 21:00 09/17/20 08:59 06/25/20 09:00 Montelukast Sodium (Singulair) 10 mg DAILY ORAL 06/19/20 09:00 09/17/20 08:59 06/25/20 09:00 Multivitamins Therapeutic (Therapeutic Multivitamin) 1 ea DAILY ORAL 06/19/20 09:00 07/19/20 08:59 06/25/20 09:01 Nitroglycerin (Nitro-Bid) 1 inch DAILY TOPIC 06/19/20 09:00 07/19/20 08:59 06/25/20 09:01 Nitroglycerin (Ntg) 0.4 mg Q5M X 3 DOSES PRN SL Prn Chest Pain 06/18/20 22:00 07/18/20 21:59 Pantoprazole (Protonix) 40 mg DAILY ORAL 06/19/20 09:00 07/19/20 08:59 06/25/20 09:01 Promethazine HCl/ Codeine (Phenergan with Codeine) 5 ml Q4H PRN ORAL For Cough 06/23/20 09:00 07/23/20 08:59 06/23/20 21:34 Jason Manuel MD Jun 25, 2020 10:48
[2020-06-25 12:00] VITALS: BP 125/76
[2020-06-25] MEDS: D5NS 1,000 ML IV SCH (12:13)
--- NOTE | 2020-06-25 14:14 | General Progress Note ---
Assessment/Plan Problem List: (1) COVID-19 ICD Codes: U07.1 - COVID-19 SNOMED: 349502932 (2) Pneumonia ICD Codes: J18.9 - Pneumonia, unspecified organism SNOMED: 307347026, 189221577 (3) Encephalopathy ICD Codes: G93.40 - Encephalopathy, unspecified SNOMED: 30677695 (4) Leukocytosis ICD Codes: D72.829 - Elevated white blood cell count, unspecified SNOMED: 850625094, 662100464 (5) Hypernatremia ICD Codes: E87.0 - Hyperosmolality and hypernatremia SNOMED: 838511733 (6) ACS (acute coronary syndrome) ICD Codes: I24.9 - Acute ischemic heart disease, unspecified SNOMED: 236431688 Status: stable Assessment/Plan: steroids monitor off abx monitor cxr repeat labs dc d5w changed to d5ns encourage po Add Remeron cough rx cont inhalers pulm and ID noted. cont dvt/stress ulcer prophylaxis Subjective ROS Limited/Unobtainable: No Constitutional: Reports: malaise, weakness HEENT: Reports: no symptoms Cardiovascular: Reports: no symptoms Respiratory: Reports: cough, shortness of breath Gastrointestinal/Abdominal: Reports: poor appetite, poor fluid intake Genitourinary: Reports: no symptoms Neurologic/Psychiatric: Reports: anxiety, depressed Endocrine: Reports: no symptoms Hematologic/Lymphatic: Reports: anemia Allergies: Coded Allergies: NO KNOWN ALLERGIES (Unverified Allergy, Unknown, 10/21/15) All Systems: reviewed and negative except above Subjective No overnight events. Remained stable on room air. No fevers or chills. Decreased cough and congestion noted. Has poor appetite. Mostly withdrawn. Objective Last 24 Hour Vital Signs Date Time Temp Pulse Resp B/P (MAP) Pulse Ox O2 Delivery O2 Flow Rate FiO2 06/25/20 12:00 97.7 87 18 125/76 (92) 95 06/25/20 09:01 141/72 06/25/20 09:00 Room Air 06/25/20 09:00 96 141/72 06/25/20 08:00 98.2 96 19 141/72 (95) 94 06/25/20 07:45 96 18 95 Room Air 06/25/20 04:22 98.1 82 22 141/90 (107) 95 06/25/20 00:03 98.1 94 22 125/85 (98) 94 06/24/20 21:04 84 136/86 06/24/20 20:30 84 18 94 Room Air 06/24/20 20:10 Room Air 06/24/20 20:07 98.4 89 22 136/86 (103) 96 06/24/20 17:14 97 20 98 Room Air 21 101 20 94 06/24/20 16:00 97.6 86 18 115/69 (84) 96 Intake and Output 06/24/20 06/25/20 19:00 07:00 Intake Total 525 ml 900 ml Output Total 600 ml 250 ml Balance -75 ml 650 ml IV Total 525 ml 900 ml Output Urine Total 600 ml Stool Total 250 ml Height (Feet): 5 Height (Inches): 6.00 Weight (Pounds): 92 Objective General Appearance: WD/WN, alert EENT: PERRL/EOMI Neck: supple Cardiovascular: normal peripheral pulses, normal rate, regular rhythm Respiratory/Chest: chest wall non-tender, lungs clear Abdomen: normal bowel sounds, non tender, soft, no organomegaly Edema: no edema noted Arm (L), no edema noted Arm (R) Neurologic: getter filler II-XII grossly normal, alert Skin: normal pigmentation Toni Bennett MD Jun 25, 2020 14:14
[2020-06-25 16:00] VITALS: BP 147/72
[2020-06-25 20:00] VITALS: BP 139/81
--- NOTE | 2020-06-25 20:44 | Pulmonology Progress Note ---
Subjective ROS Limited/Unobtainable: No Constitutional: Denies: fever, chills Gastrointestinal/Abdominal: Denies: nausea, vomiting, diarrhea Musculoskeletal: Denies: pain Allergies: Coded Allergies: NO KNOWN ALLERGIES (Unverified Allergy, Unknown, 10/21/15) All Systems: reviewed and negative except above Subjective on isolation stable off oxygen late entry 06/24/20 Objective Last 24 Hour Vital Signs Date Time Temp Pulse Resp B/P (MAP) Pulse Ox O2 Delivery O2 Flow Rate FiO2 06/24/20 21:04 84 136/86 Objective deferred as COVID+ Current Medications Medications (Trade) Dose Ordered Sig/Johnson Route PRN Reason Start Time Stop Time Status Last Admin Dose Admin Acetaminophen (Tylenol) 650 mg Q4H PRN ORAL Temp >100.5/ mild pain (1-3) 06/18/20 21:45 07/18/20 21:44 06/23/20 21:05 Al Hydroxide/Mg Hydroxide (Mylanta) 30 ml EVERY 4 HOURS PRN ORAL stomach upset/heartburn/indige 06/18/20 21:45 07/18/20 21:44 Albuterol/ Ipratropium (Albuterol/ Ipratropium) 3 ml Q4H PRN HHN Shortness of Breath 06/21/20 19:37 06/26/20 19:36 06/24/20 17:04 Apixaban (Eliquis) 5 mg BID GT 06/19/20 09:00 09/17/20 08:59 06/25/20 17:20 Ascorbic Acid (Vitamin C) 500 mg DAILY ORAL 06/19/20 09:00 07/19/20 08:59 06/25/20 09:01 Aspirin (ASA) 81 mg DAILY GT 06/19/20 09:00 08/03/20 08:59 06/25/20 09:01 Atorvastatin Calcium (Lipitor) 20 mg BEDTIME ORAL 06/19/20 21:00 09/17/20 20:59 06/24/20 21:04 Brimonidine Tartrate (Alphagan) 1 drop BID BOTH EYES 06/19/20 09:00 09/17/20 08:59 06/25/20 17:20 Calcium/Vitamin D (OsCal D) 1 tab BID ORAL 06/19/20 09:00 09/17/20 08:59 06/25/20 17:20 Carbamazepine (TEGretol) 200 mg Q12HR GT 06/19/20 09:00 07/19/20 08:59 06/25/20 09:01 Clonidine HCl (Catapres Tab) 0.1 mg Q4H PRN ORAL For High Blood Pressure 06/21/20 13:30 09/19/20 13:29 06/22/20 04:53 Dexamethasone Sodium Phosphate (Decadron 10mg/ ml Inj) 6 mg DAILY IV 06/19/20 09:00 09/17/20 08:59 06/25/20 09:01 Dextrose/Sodium Chloride 1,000 ml @ 75 mls/hr [id number] IV 06/24/20 09:15 07/24/20 09:14 06/25/20 12:13 Docusate Sodium (Colace) 100 mg THREE TIMES A DAY ORAL 06/20/20 09:30 07/20/20 09:29 06/25/20 17:20 Donepezil HCl (Aricept) 10 mg DAILY ORAL 06/19/20 09:00 07/19/20 08:59 06/25/20 09:01 Dorzolamide HCl (Trusopt) 1 drop TID BOTH EYES 06/19/20 09:00 07/19/20 08:59 06/25/20 17:20 Latanoprost (Xalatan) 1 drop BEDTIME BOTH EYES 06/19/20 21:00 07/19/20 20:59 06/24/20 21:03 Levetiracetam (Keppra) 500 mg TWICE A DAY ORAL 06/19/20 09:00 07/19/20 08:59 06/25/20 17:20 Memantine (Namenda) 10 mg TWICE A DAY ORAL 06/19/20 09:00 07/19/20 08:59 06/25/20 17:19 Metoprolol Tartrate (Lopressor) 75 mg EVERY 12 HOURS ORAL 06/22/20 21:00 09/17/20 08:59 06/25/20 09:00 Mirtazapine (Remeron) 7.5 mg BEDTIME ORAL 06/25/20 21:00 09/23/20 20:59 Montelukast Sodium (Singulair) 10 mg DAILY ORAL 06/19/20 09:00 09/17/20 08:59 06/25/20 09:00 Multivitamins Therapeutic (Therapeutic Multivitamin) 1 ea DAILY ORAL 06/19/20 09:00 07/19/20 08:59 06/25/20 09:01 Nitroglycerin (Nitro-Bid) 1 inch DAILY TOPIC 06/19/20 09:00 07/19/20 08:59 06/25/20 09:01 Nitroglycerin (Ntg) 0.4 mg Q5M X 3 DOSES PRN SL Prn Chest Pain 06/18/20 22:00 07/18/20 21:59 Pantoprazole (Protonix) 40 mg DAILY ORAL 06/19/20 09:00 07/19/20 08:59 06/25/20 09:01 Promethazine HCl/ Codeine (Phenergan with Codeine) 5 ml Q4H PRN ORAL For Cough 06/23/20 09:00 07/23/20 08:59 06/23/20 21:34 Assessment/Plan Assessment/Plan 1. COVID pneumonia. 2. Respiratory insufficiency. 3. Hypoxemia. 4. DNR 5. Hypokalemia. 6. Leukocytosis. 7. Possible sepsis. 8. Dementia. 9. Hypercholesterolemia. 10. sinus tachycardia/ hypertension PLAN care noted maintain beta cindy dc planning pulmonary loving better monitor labs- hypotonic fluids care reviewed conservative management with DNR status impression, plan, and exam edited and reviewed in detail care discussed with Zane Mcguire MD Jun 25, 2020 20:44
--- NOTE | 2020-06-25 20:45 | Pulmonology Progress Note ---
Subjective ROS Limited/Unobtainable: No Constitutional: Denies: fever, chills Gastrointestinal/Abdominal: Denies: nausea, vomiting, diarrhea Musculoskeletal: Denies: pain Allergies: Coded Allergies: NO KNOWN ALLERGIES (Unverified Allergy, Unknown, 10/21/15) All Systems: reviewed and negative except above Subjective on isolation stable as is off oxygen Objective Last 24 Hour Vital Signs Date Time Temp Pulse Resp B/P (MAP) Pulse Ox O2 Delivery O2 Flow Rate FiO2 06/25/20 20:00 98.2 105 20 139/81 (100) 99 06/25/20 19:00 Room Air 06/25/20 16:00 98.2 93 18 147/72 (97) 95 06/25/20 12:00 97.7 87 18 125/76 (92) 95 06/25/20 09:01 141/72 06/25/20 09:00 Room Air 06/25/20 09:00 96 141/72 06/25/20 08:00 98.2 96 19 141/72 (95) 94 06/25/20 07:45 96 18 95 Room Air 06/25/20 04:22 98.1 82 22 141/90 (107) 95 06/25/20 00:03 98.1 94 22 125/85 (98) 94 06/24/20 21:04 84 136/86 Intake and Output 06/24/20 06/25/20 19:00 07:00 Intake Total 525 ml 900 ml Output Total 600 ml 250 ml Balance -75 ml 650 ml IV Total 525 ml 900 ml Output Urine Total 600 ml Stool Total 250 ml Objective deferred as COVID+ Current Medications Medications (Trade) Dose Ordered Sig/Johnson Route PRN Reason Start Time Stop Time Status Last Admin Dose Admin Acetaminophen (Tylenol) 650 mg Q4H PRN ORAL Temp >100.5/ mild pain (1-3) 06/18/20 21:45 07/18/20 21:44 06/23/20 21:05 Al Hydroxide/Mg Hydroxide (Mylanta) 30 ml EVERY 4 HOURS PRN ORAL stomach upset/heartburn/indige 06/18/20 21:45 07/18/20 21:44 Albuterol/ Ipratropium (Albuterol/ Ipratropium) 3 ml Q4H PRN HHN Shortness of Breath 06/21/20 19:37 06/26/20 19:36 06/24/20 17:04 Apixaban (Eliquis) 5 mg BID GT 06/19/20 09:00 09/17/20 08:59 06/25/20 17:20 Ascorbic Acid (Vitamin C) 500 mg DAILY ORAL 06/19/20 09:00 07/19/20 08:59 06/25/20 09:01 Aspirin (ASA) 81 mg DAILY GT 06/19/20 09:00 08/03/20 08:59 06/25/20 09:01 Atorvastatin Calcium (Lipitor) 20 mg BEDTIME ORAL 06/19/20 21:00 09/17/20 20:59 06/24/20 21:04 Brimonidine Tartrate (Alphagan) 1 drop BID BOTH EYES 06/19/20 09:00 09/17/20 08:59 06/25/20 17:20 Calcium/Vitamin D (OsCal D) 1 tab BID ORAL 06/19/20 09:00 09/17/20 08:59 06/25/20 17:20 Carbamazepine (TEGretol) 200 mg Q12HR GT 06/19/20 09:00 07/19/20 08:59 06/25/20 09:01 Clonidine HCl (Catapres Tab) 0.1 mg Q4H PRN ORAL For High Blood Pressure 06/21/20 13:30 09/19/20 13:29 06/22/20 04:53 Dexamethasone Sodium Phosphate (Decadron 10mg/ ml Inj) 6 mg DAILY IV 06/19/20 09:00 09/17/20 08:59 06/25/20 09:01 Dextrose/Sodium Chloride 1,000 ml @ 75 mls/hr [id number] IV 06/24/20 09:15 07/24/20 09:14 06/25/20 12:13 Docusate Sodium (Colace) 100 mg THREE TIMES A DAY ORAL 06/20/20 09:30 07/20/20 09:29 06/25/20 17:20 Donepezil HCl (Aricept) 10 mg DAILY ORAL 06/19/20 09:00 07/19/20 08:59 06/25/20 09:01 Dorzolamide HCl (Trusopt) 1 drop TID BOTH EYES 06/19/20 09:00 07/19/20 08:59 06/25/20 17:20 Latanoprost (Xalatan) 1 drop BEDTIME BOTH EYES 06/19/20 21:00 07/19/20 20:59 06/24/20 21:03 Levetiracetam (Keppra) 500 mg TWICE A DAY ORAL 06/19/20 09:00 07/19/20 08:59 06/25/20 17:20 Memantine (Namenda) 10 mg TWICE A DAY ORAL 06/19/20 09:00 07/19/20 08:59 06/25/20 17:19 Metoprolol Tartrate (Lopressor) 75 mg EVERY 12 HOURS ORAL 06/22/20 21:00 09/17/20 08:59 06/25/20 09:00 Mirtazapine (Remeron) 7.5 mg BEDTIME ORAL 06/25/20 21:00 09/23/20 20:59 Montelukast Sodium (Singulair) 10 mg DAILY ORAL 06/19/20 09:00 09/17/20 08:59 06/25/20 09:00 Multivitamins Therapeutic (Therapeutic Multivitamin) 1 ea DAILY ORAL 06/19/20 09:00 07/19/20 08:59 06/25/20 09:01 Nitroglycerin (Nitro-Bid) 1 inch DAILY TOPIC 06/19/20 09:00 07/19/20 08:59 06/25/20 09:01 Nitroglycerin (Ntg) 0.4 mg Q5M X 3 DOSES PRN SL Prn Chest Pain 06/18/20 22:00 07/18/20 21:59 Pantoprazole (Protonix) 40 mg DAILY ORAL 06/19/20 09:00 07/19/20 08:59 06/25/20 09:01 Promethazine HCl/ Codeine (Phenergan with Codeine) 5 ml Q4H PRN ORAL For Cough 06/23/20 09:00 07/23/20 08:59 06/23/20 21:34 Assessment/Plan Assessment/Plan 1. COVID pneumonia. 2. Respiratory insufficiency. 3. Hypoxemia. 4. DNR 5. Hypokalemia. 6. Leukocytosis. 7. Possible sepsis. 8. Dementia. 9. Hypercholesterolemia. 10. sinus tachycardia/ hypertension PLAN care noted maintain beta cindy dc planning still on decadron pulmonary loving better monitor labs- hypotonic fluids care reviewed conservative management with DNR status impression, plan, and exam edited and reviewed in detail care discussed with Zane Mcguire MD Jun 25, 2020 20:45
[2020-06-25] MEDS: Latanoprost 0.005% Opth 2.5ml Soln BOTH EYES SCH (21:35)
[2020-06-26] VITALS: BP 163/95
[2020-06-26] MEDS: D5NS 1,000 ML IV SCH ×2 (01:45→15:50)
[2020-06-26 04:00] VITALS: BP 134/64
[2020-06-26 08:00] VITALS: BP 149/94
--- NOTE | 2020-06-26 08:52 | Pulmonology Progress Note ---
Subjective ROS Limited/Unobtainable: No Constitutional: Denies: fever, chills Gastrointestinal/Abdominal: Denies: nausea, vomiting, diarrhea Musculoskeletal: Denies: pain Allergies: Coded Allergies: NO KNOWN ALLERGIES (Unverified Allergy, Unknown, 10/21/15) All Systems: reviewed and negative except above Subjective on isolation stable as is off oxygen Objective Last 24 Hour Vital Signs Date Time Temp Pulse Resp B/P (MAP) Pulse Ox O2 Delivery O2 Flow Rate FiO2 06/26/20 08:00 99.3 97 24 149/94 (112) 95 06/26/20 04:00 97.7 68 20 134/64 (87) 98 06/26/20 00:39 163/95 06/26/20 00:00 98.0 89 21 163/95 (117) 96 06/25/20 21:36 105 139/81 06/25/20 20:55 88 18 96 Room Air 21 06/25/20 20:00 98.2 105 20 139/81 (100) 99 06/25/20 19:00 Room Air 06/25/20 16:00 98.2 93 18 147/72 (97) 95 06/25/20 12:00 97.7 87 18 125/76 (92) 95 06/25/20 09:01 141/72 06/25/20 09:00 Room Air 06/25/20 09:00 96 141/72 Intake and Output 06/25/20 06/26/20 19:00 07:00 Intake Total 748 ml 675 ml Output Total 600 ml Balance 148 ml 675 ml IV Total 748 ml 675 ml Output Urine Total 600 ml # Voids 2 # Bowel Movements 1 1 Objective deferred as COVID+ Current Medications Medications (Trade) Dose Ordered Sig/Johnson Route PRN Reason Start Time Stop Time Status Last Admin Dose Admin Acetaminophen (Tylenol) 650 mg Q4H PRN ORAL Temp >100.5/ mild pain (1-3) 06/18/20 21:45 07/18/20 21:44 06/23/20 21:05 Al Hydroxide/Mg Hydroxide (Mylanta) 30 ml EVERY 4 HOURS PRN ORAL stomach upset/heartburn/indige 06/18/20 21:45 07/18/20 21:44 Albuterol/ Ipratropium (Albuterol/ Ipratropium) 3 ml Q4H PRN HHN Shortness of Breath 06/21/20 19:37 06/26/20 19:36 06/24/20 17:04 Apixaban (Eliquis) 5 mg BID GT 06/19/20 09:00 09/17/20 08:59 06/25/20 17:20 Ascorbic Acid (Vitamin C) 500 mg DAILY ORAL 06/19/20 09:00 07/19/20 08:59 06/25/20 09:01 Aspirin (ASA) 81 mg DAILY GT 06/19/20 09:00 08/03/20 08:59 06/25/20 09:01 Atorvastatin Calcium (Lipitor) 20 mg BEDTIME ORAL 06/19/20 21:00 09/17/20 20:59 06/25/20 21:36 Brimonidine Tartrate (Alphagan) 1 drop BID BOTH EYES 06/19/20 09:00 09/17/20 08:59 06/25/20 17:20 Calcium/Vitamin D (OsCal D) 1 tab BID ORAL 06/19/20 09:00 09/17/20 08:59 06/25/20 17:20 Carbamazepine (TEGretol) 200 mg Q12HR GT 06/19/20 09:00 07/19/20 08:59 06/25/20 21:36 Clonidine HCl (Catapres Tab) 0.1 mg Q4H PRN ORAL For High Blood Pressure 06/21/20 13:30 09/19/20 13:29 06/26/20 00:39 Dexamethasone Sodium Phosphate (Decadron 10mg/ ml Inj) 6 mg DAILY IV 06/19/20 09:00 09/17/20 08:59 06/25/20 09:01 Dextrose/Sodium Chloride 1,000 ml @ 75 mls/hr [id number] IV 06/24/20 09:15 07/24/20 09:14 06/26/20 01:45 Docusate Sodium (Colace) 100 mg THREE TIMES A DAY ORAL 06/20/20 09:30 07/20/20 09:29 06/25/20 17:20 Donepezil HCl (Aricept) 10 mg DAILY ORAL 06/19/20 09:00 07/19/20 08:59 06/25/20 09:01 Dorzolamide HCl (Trusopt) 1 drop TID BOTH EYES 06/19/20 09:00 07/19/20 08:59 06/25/20 17:20 Latanoprost (Xalatan) 1 drop BEDTIME BOTH EYES 06/19/20 21:00 07/19/20 20:59 06/25/20 21:35 Levetiracetam (Keppra) 500 mg TWICE A DAY ORAL 06/19/20 09:00 07/19/20 08:59 06/25/20 17:20 Memantine (Namenda) 10 mg TWICE A DAY ORAL 06/19/20 09:00 07/19/20 08:59 06/25/20 17:19 Metoprolol Tartrate (Lopressor) 75 mg EVERY 12 HOURS ORAL 06/22/20 21:00 09/17/20 08:59 06/25/20 21:36 Mirtazapine (Remeron) 7.5 mg BEDTIME ORAL 06/25/20 21:00 09/23/20 20:59 06/25/20 21:37 Montelukast Sodium (Singulair) 10 mg DAILY ORAL 06/19/20 09:00 09/17/20 08:59 06/25/20 09:00 Multivitamins Therapeutic (Therapeutic Multivitamin) 1 ea DAILY ORAL 06/19/20 09:00 07/19/20 08:59 06/25/20 09:01 Nitroglycerin (Nitro-Bid) 1 inch DAILY TOPIC 06/19/20 09:00 07/19/20 08:59 06/25/20 09:01 Nitroglycerin (Ntg) 0.4 mg Q5M X 3 DOSES PRN SL Prn Chest Pain 06/18/20 22:00 07/18/20 21:59 Pantoprazole (Protonix) 40 mg DAILY ORAL 06/19/20 09:00 07/19/20 08:59 06/25/20 09:01 Promethazine HCl/ Codeine (Phenergan with Codeine) 5 ml Q4H PRN ORAL For Cough 06/23/20 09:00 07/23/20 08:59 06/23/20 21:34 Assessment/Plan Assessment/Plan 1. COVID pneumonia. 2. Respiratory insufficiency. 3. Hypoxemia. 4. DNR 5. Hypokalemia. 6. Leukocytosis. 7. Possible sepsis. 8. Dementia. 9. Hypercholesterolemia. 10. sinus tachycardia/ hypertension PLAN care noted maintain beta cindy dc planning/ awaiting placement still on decadron pulmonary loving seems stable monitor labs- hypotonic fluids and monitor lytes care reviewed conservative management with DNR status impression, plan, and exam edited and reviewed in detail care discussed with Zane Mcguire MD Jun 26, 2020 08:52
[2020-06-26] MEDS: Calcium Carbonate 500mg w/Vit D 200iu tab ORAL SCH ×2 (09:39→17:27)
[2020-06-26] MEDS: Nitroglycerin 2% oint pkt TOPIC SCH (09:39)
[2020-06-26] MEDS: Docusate 100mg/10ml Liq ORAL SCH ×3 (09:40→17:26)
[2020-06-26] MEDS: carBAMazepine 200mg tab GT SCH ×2 (09:40→21:24)
[2020-06-26] MEDS: Eliquis 5mg tablet GT SCH ×2 (09:40→17:27)
[2020-06-26] MEDS: Aspirin Baby 81mg GT SCH (09:40)
[2020-06-26] MEDS: Donepezil 10mg tab ORAL SCH (09:40)
[2020-06-26] MEDS: levETIRAcetam 500mg/5ml Liquid ORAL SCH ×2 (09:40→17:27)
[2020-06-26] MEDS: Ascorbic Acid 500mg tab ORAL SCH (09:40)
[2020-06-26] MEDS: Multivitamin w/Minerals tab ORAL SCH (09:41)
[2020-06-26] MEDS: Montelukast 10mg tablet ORAL SCH (09:41)
[2020-06-26] MEDS: Memantine 10mg tab ORAL SCH ×2 (09:41→17:27)
[2020-06-26] MEDS: Brimonidine 0.2% Opth Sol BOTH EYES SCH ×2 (09:42→17:26)
[2020-06-26] MEDS: Dorzolamide 2% 10ml Btl BOTH EYES SCH ×3 (09:42→17:26)
[2020-06-26] MEDS: dexAMETHasone 10mg/ml Inj IV SCH (09:43)
[2020-06-26 12:00] VITALS: BP 155/83
--- NOTE | 2020-06-26 14:24 | Infectious Diseases Prog Note ---
Assessment/Plan Assessment/Plan antibiotics : dexamethasone A 1. COVID 19 pneumonia on room air, O2 saturation 95 percent 2. hypertension 3. dementia 4. COPD 5. leucocytosis likely secondary to steroids P 1. continue dexamethasone day 8 2. will follow up cultures 3. continue isolation Subjective ROS Limited/Unobtainable: Yes Allergies: Coded Allergies: NO KNOWN ALLERGIES (Unverified Allergy, Unknown, 10/21/15) Objective Last 24 Hour Vital Signs Date Time Temp Pulse Resp B/P (MAP) Pulse Ox O2 Delivery O2 Flow Rate FiO2 06/26/20 12:00 97.7 79 24 155/83 (107) 95 06/26/20 09:43 97 149/94 06/26/20 09:39 149/94 06/26/20 09:00 Room Air 06/26/20 08:00 99.3 97 24 149/94 (112) 95 06/26/20 04:00 97.7 68 20 134/64 (87) 98 06/26/20 00:39 163/95 06/26/20 00:00 98.0 89 21 163/95 (117) 96 06/25/20 21:36 105 139/81 06/25/20 20:55 88 18 96 Room Air 21 06/25/20 20:00 98.2 105 20 139/81 (100) 99 06/25/20 19:00 Room Air 06/25/20 16:00 98.2 93 18 147/72 (97) 95 Height (Feet): 5 Height (Inches): 6.00 Weight (Pounds): 92 Current Medications Medications (Trade) Dose Ordered Sig/Johnson Route PRN Reason Start Time Stop Time Status Last Admin Dose Admin Acetaminophen (Tylenol) 650 mg Q4H PRN ORAL Temp >100.5/ mild pain (1-3) 06/18/20 21:45 07/18/20 21:44 06/23/20 21:05 Al Hydroxide/Mg Hydroxide (Mylanta) 30 ml EVERY 4 HOURS PRN ORAL stomach upset/heartburn/indige 06/18/20 21:45 07/18/20 21:44 Albuterol/ Ipratropium (Albuterol/ Ipratropium) 3 ml Q4H PRN HHN Shortness of Breath 06/21/20 19:37 06/26/20 19:36 06/24/20 17:04 Apixaban (Eliquis) 5 mg BID GT 06/19/20 09:00 09/17/20 08:59 06/26/20 09:40 Ascorbic Acid (Vitamin C) 500 mg DAILY ORAL 06/19/20 09:00 07/19/20 08:59 06/26/20 09:40 Aspirin (ASA) 81 mg DAILY GT 06/19/20 09:00 08/03/20 08:59 06/26/20 09:40 Atorvastatin Calcium (Lipitor) 20 mg BEDTIME ORAL 06/19/20 21:00 09/17/20 20:59 06/25/20 21:36 Brimonidine Tartrate (Alphagan) 1 drop BID BOTH EYES 06/19/20 09:00 09/17/20 08:59 06/26/20 09:42 Calcium/Vitamin D (OsCal D) 1 tab BID ORAL 06/19/20 09:00 09/17/20 08:59 06/26/20 09:39 Carbamazepine (TEGretol) 200 mg Q12HR GT 06/19/20 09:00 07/19/20 08:59 06/26/20 09:40 Clonidine HCl (Catapres Tab) 0.1 mg Q4H PRN ORAL For High Blood Pressure 06/21/20 13:30 09/19/20 13:29 06/26/20 00:39 Dexamethasone Sodium Phosphate (Decadron 10mg/ ml Inj) 6 mg DAILY IV 06/19/20 09:00 09/17/20 08:59 06/26/20 09:43 Dextrose/Sodium Chloride 1,000 ml @ 75 mls/hr [id number] IV 06/24/20 09:15 07/24/20 09:14 06/26/20 01:45 Docusate Sodium (Colace) 100 mg THREE TIMES A DAY ORAL 06/20/20 09:30 07/20/20 09:29 06/26/20 09:40 Donepezil HCl (Aricept) 10 mg DAILY ORAL 06/19/20 09:00 07/19/20 08:59 06/26/20 09:40 Dorzolamide HCl (Trusopt) 1 drop TID BOTH EYES 06/19/20 09:00 07/19/20 08:59 06/26/20 09:42 Latanoprost (Xalatan) 1 drop BEDTIME BOTH EYES 06/19/20 21:00 07/19/20 20:59 06/25/20 21:35 Levetiracetam (Keppra) 500 mg TWICE A DAY ORAL 06/19/20 09:00 07/19/20 08:59 06/26/20 09:40 Memantine (Namenda) 10 mg TWICE A DAY ORAL 06/19/20 09:00 07/19/20 08:59 06/26/20 09:41 Metoprolol Tartrate (Lopressor) 75 mg EVERY 12 HOURS ORAL 06/22/20 21:00 09/17/20 08:59 06/26/20 09:43 Mirtazapine (Remeron) 7.5 mg BEDTIME ORAL 06/25/20 21:00 09/23/20 20:59 06/25/20 21:37 Montelukast Sodium (Singulair) 10 mg DAILY ORAL 06/19/20 09:00 09/17/20 08:59 06/26/20 09:41 Multivitamins Therapeutic (Therapeutic Multivitamin) 1 ea DAILY ORAL 06/19/20 09:00 07/19/20 08:59 06/26/20 09:41 Nitroglycerin (Nitro-Bid) 1 inch DAILY TOPIC 06/19/20 09:00 07/19/20 08:59 06/26/20 09:39 Nitroglycerin (Ntg) 0.4 mg Q5M X 3 DOSES PRN SL Prn Chest Pain 06/18/20 22:00 07/18/20 21:59 Pantoprazole (Protonix) 40 mg DAILY ORAL 06/19/20 09:00 07/19/20 08:59 06/26/20 09:41 Promethazine HCl/ Codeine (Phenergan with Codeine) 5 ml Q4H PRN ORAL For Cough 06/23/20 09:00 07/23/20 08:59 06/23/20 21:34 Jason Manuel MD Jun 26, 2020 14:24
[2020-06-26 16:00] VITALS: BP 142/86
[2020-06-26 20:00] VITALS: BP 146/88
--- NOTE | 2020-06-26 20:55 | General Progress Note ---
Assessment/Plan Problem List: (1) COVID-19 ICD Codes: U07.1 - COVID-19 SNOMED: 967589995 (2) Pneumonia ICD Codes: J18.9 - Pneumonia, unspecified organism SNOMED: 846568830, 782435146 (3) Encephalopathy ICD Codes: G93.40 - Encephalopathy, unspecified SNOMED: 41103647 (4) Leukocytosis ICD Codes: D72.829 - Elevated white blood cell count, unspecified SNOMED: 426602749, 786241447 (5) Hypernatremia ICD Codes: E87.0 - Hyperosmolality and hypernatremia SNOMED: 987833333 (6) ACS (acute coronary syndrome) ICD Codes: I24.9 - Acute ischemic heart disease, unspecified SNOMED: 512121381 Status: stable Assessment/Plan: steroids per id monitor off abx monitor cxr repeat labs ivf encourage po remeron for appetitie cough rx cont inhalers pulm and ID noted. cont dvt/stress ulcer prophylaxis Subjective ROS Limited/Unobtainable: No Constitutional: Reports: malaise, weakness HEENT: Reports: no symptoms Cardiovascular: Reports: no symptoms Respiratory: Reports: cough Gastrointestinal/Abdominal: Reports: poor appetite Genitourinary: Reports: no symptoms Neurologic/Psychiatric: Reports: depressed Endocrine: Reports: no symptoms Hematologic/Lymphatic: Reports: no symptoms Allergies: Coded Allergies: NO KNOWN ALLERGIES (Unverified Allergy, Unknown, 10/21/15) All Systems: reviewed and negative except above Subjective no change. poor po intake. O2 sats normal on room air. less congested and decreased cough. alert. minimally verbal.?confused at baseline. Objective Last 24 Hour Vital Signs Date Time Temp Pulse Resp B/P (MAP) Pulse Ox O2 Delivery O2 Flow Rate FiO2 06/26/20 20:04 92 18 95 Room Air 21 06/26/20 20:00 99.0 96 22 146/88 (107) 95 06/26/20 17:37 142/86 06/26/20 16:00 98.2 88 25 142/86 (104) 95 06/26/20 12:00 97.7 79 24 155/83 (107) 95 06/26/20 09:43 97 149/94 06/26/20 09:39 149/94 06/26/20 09:00 Room Air 06/26/20 08:00 99.3 97 24 149/94 (112) 95 06/26/20 04:00 97.7 68 20 134/64 (87) 98 06/26/20 00:39 163/95 06/26/20 00:00 98.0 89 21 163/95 (117) 96 06/25/20 21:36 105 139/81 06/25/20 20:55 88 18 96 Room Air 21 Intake and Output 06/25/20 06/26/20 19:00 07:00 Intake Total 748 ml 750 ml Output Total 600 ml Balance 148 ml 750 ml IV Total 748 ml 750 ml Output Urine Total 600 ml # Voids 2 # Bowel Movements 1 1 Height (Feet): 5 Height (Inches): 6.00 Weight (Pounds): 92 Objective General Appearance: WD/WN, alert EENT: PERRL/EOMI Neck: supple Cardiovascular: normal peripheral pulses, normal rate, regular rhythm Respiratory/Chest: chest wall non-tender, lungs clear Abdomen: normal bowel sounds, non tender, soft, no organomegaly Edema: no edema noted Arm (L), no edema noted Arm (R) 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
[2020-06-26] MEDS: Latanoprost 0.005% Opth 2.5ml Soln BOTH EYES SCH (21:24)
[2020-06-27] VITALS: BP 148/79
--- NOTE | 2020-06-27 03:11 | Cardiology Progress Note ---
Subjective DATE OF SERVICE: Jun 26, 2020 Less cough and congestion. Objective Last 24 Hour Vital Signs Date Time Temp Pulse Resp B/P (MAP) Pulse Ox O2 Delivery O2 Flow Rate FiO2 06/27/20 00:00 98.3 99 20 148/79 (102) 95 06/26/20 21:00 Room Air 06/26/20 20:04 92 18 95 Room Air 21 06/26/20 20:00 99.0 96 22 146/88 (107) 95 06/26/20 17:37 142/86 06/26/20 16:00 98.2 88 25 142/86 (104) 95 06/26/20 12:00 97.7 79 24 155/83 (107) 95 06/26/20 09:43 97 149/94 06/26/20 09:39 149/94 06/26/20 09:00 Room Air 06/26/20 08:00 99.3 97 24 149/94 (112) 95 06/26/20 04:00 97.7 68 20 134/64 (87) 98 LUNGS: bilateral rhonchi CARDIAC: regular rhythm, gallop/S4 ABDOMEN: normal bowel sounds, non tender, soft EXTREMITIES: No edema Assessment/Plan Assessment/Plan COVID19 PNA Ischemic heart disease Hypertension/HHD Sinus tachycardia Hyperlipidemia Hypokalemia Titrate beta cindy oxygen anti-coagulation anti-viral rx check lipid panel anti-plt therapy with low dose aspirin replace potassium; check magnesium Lam Levine MD Jun 27, 2020 03:11
[2020-06-27 04:00] VITALS: BP 141/83
[2020-06-27 06:28] LABS: BASOPHILS % (AUTO) 0.3 % (0.0-2.0); EOSINOPHILS % (AUTO) 0.5 % (0.0-3.0); HEMATOCRIT 38.1 % (37.0-47.0); HEMOGLOBIN 12.5 G/DL (12.0-16.0); LYMPHOCYTES % (AUTO) 16.6 % (20.0-45.0); MEAN CORPUSCULAR VOLUME 95 FL (80-99); MONOCYTES % (AUTO) 8.6 % (1.0-10.0); PLATELET COUNT 565 K/UL (150-450); RED BLOOD COUNT 4.03 M/UL (4.20-5.40); RED CELL DISTRIBUTION WIDTH 12.2 % (11.6-14.8); WHITE BLOOD COUNT 12.8 K/UL (4.8-10.8)
[2020-06-27 06:46] LABS: ALANINE AMINOTRANSFERASE 54 U/L (12-78); ALBUMIN 2.2 G/DL (3.4-5.0); ALBUMIN/GLOBULIN RATIO 0.4 (1.0-2.7); ALKALINE PHOSPHATASE 69 U/L (46-116); ANION GAP 11 mmol/L (5-15); ASPARTATE AMINO TRANSFERASE 47 U/L (15-37); BILIRUBIN,TOTAL 0.7 MG/DL (0.2-1.0); BLOOD UREA NITROGEN 3 mg/dL (7-18); CALCIUM 8.1 MG/DL (8.5-10.1); CARBON DIOXIDE 24 MMOL/L (21-32); CHLORIDE 108 MMOL/L (98-107); CREATININE 0.6 MG/DL (0.55-1.30); SODIUM 143 MMOL/L (136-145)
[2020-06-27 06:49] LABS: POTASSIUM 2.1 MMOL/L (3.5-5.1)
[2020-06-27 08:00] VITALS: BP 154/111
[2020-06-27] MEDS: Calcium Carbonate 500mg w/Vit D 200iu tab ORAL SCH ×2 (08:21→18:16)
[2020-06-27] MEDS: Donepezil 10mg tab ORAL SCH (08:21)
[2020-06-27] MEDS: carBAMazepine 200mg tab GT SCH (08:22)
[2020-06-27] MEDS: levETIRAcetam 500mg/5ml Liquid ORAL SCH ×2 (08:22→18:16)
[2020-06-27] MEDS: Memantine 10mg tab ORAL SCH ×2 (08:22→18:16)
[2020-06-27] MEDS: Aspirin Baby 81mg GT SCH (08:22)
[2020-06-27] MEDS: Multivitamin w/Minerals tab ORAL SCH (08:22)
[2020-06-27] MEDS: Docusate 100mg/10ml Liq ORAL SCH ×3 (08:22→18:16)
[2020-06-27] MEDS: Montelukast 10mg tablet ORAL SCH (08:22)
[2020-06-27] MEDS: Ascorbic Acid 500mg tab ORAL SCH (08:23)
[2020-06-27] MEDS: Eliquis 5mg tablet GT SCH ×2 (08:23→18:16)
--- NOTE | 2020-06-27 08:30 | Pulmonology Progress Note ---
Subjective ROS Limited/Unobtainable: Yes Constitutional: Denies: fever, chills Gastrointestinal/Abdominal: Denies: nausea, vomiting, diarrhea Musculoskeletal: Denies: pain Allergies: Coded Allergies: NO KNOWN ALLERGIES (Unverified Allergy, Unknown, 10/21/15) All Systems: reviewed and negative except above Subjective d/w family- confirms DNR and no ng tube stable as is off oxygen Objective Last 24 Hour Vital Signs Date Time Temp Pulse Resp B/P (MAP) Pulse Ox O2 Delivery O2 Flow Rate FiO2 06/27/20 07:30 89 20 97 Room Air 21 06/27/20 04:00 98.9 95 21 141/83 (102) 95 06/27/20 00:00 98.3 99 20 148/79 (102) 95 06/26/20 21:00 Room Air 06/26/20 20:04 92 18 95 Room Air 21 06/26/20 20:00 99.0 96 22 146/88 (107) 95 06/26/20 17:37 142/86 06/26/20 16:00 98.2 88 25 142/86 (104) 95 06/26/20 12:00 97.7 79 24 155/83 (107) 95 06/26/20 09:43 97 149/94 06/26/20 09:39 149/94 06/26/20 09:00 Room Air Intake and Output 06/26/20 06/27/20 19:00 07:00 Intake Total 900 ml 450 ml Output Total 300 ml 500 ml Balance 600 ml -50 ml IV Total 900 ml 450 ml Output Urine Total 300 ml 500 ml # Voids 1 Objective deferred as COVID+ Laboratory Tests 06/27/20 05:45: White Blood Count 12.8H, Red Blood Count 4.03L, Hemoglobin 12.5, Hematocrit 38.1 , Mean Corpuscular Volume 95, Mean Corpuscular Hemoglobin 31.1H, Mean Corpuscular Hemoglobin Concent 32.9, Red Cell Distribution Width 12.2, Platelet Count 565H, Mean Platelet Volume 4.7L, Neutrophils (%) (Auto) 74.0, Lymphocytes (%) (Auto) 16.6L, Monocytes (%) (Auto) 8.6, Eosinophils (%) (Auto) 0.5, Basophils (%) (Auto) 0.3, Sodium Level 143, Potassium Level 2.1*L, Chloride Level 108H, Carbon Dioxide Level 24, Anion Gap 11, Blood Urea Nitrogen 3L, Creatinine 0.6, Estimat Glomerular Filtration Rate > 60, Glucose Level 98, Calcium Level 8.1L, Magnesium Level 1.4L, Total Bilirubin 0.7, Aspartate Amino Transf (AST/SGOT) 47H, Alanine Aminotransferase (ALT/SGPT) 54, Alkaline Phosphatase 69, Pro-B-Type Natriuretic Peptide 699H, Total Protein 8.0, Albumin 2.2L, Globulin 5.8, Albumin/Globulin Ratio 0.4L Current Medications Medications (Trade) Dose Ordered Sig/Johnson Route PRN Reason Start Time Stop Time Status Last Admin Dose Admin Acetaminophen (Tylenol) 650 mg Q4H PRN ORAL Temp >100.5/ mild pain (1-3) 06/18/20 21:45 07/18/20 21:44 06/23/20 21:05 Al Hydroxide/Mg Hydroxide (Mylanta) 30 ml EVERY 4 HOURS PRN ORAL stomach upset/heartburn/indige 06/18/20 21:45 07/18/20 21:44 Apixaban (Eliquis) 5 mg BID GT 06/19/20 09:00 09/17/20 08:59 06/27/20 08:23 Ascorbic Acid (Vitamin C) 500 mg DAILY ORAL 06/19/20 09:00 07/19/20 08:59 06/27/20 08:23 Aspirin (ASA) 81 mg DAILY GT 06/19/20 09:00 08/03/20 08:59 06/27/20 08:22 Atorvastatin Calcium (Lipitor) 20 mg BEDTIME ORAL 06/19/20 21:00 09/17/20 20:59 06/26/20 21:24 Brimonidine Tartrate (Alphagan) 1 drop BID BOTH EYES 06/19/20 09:00 09/17/20 08:59 06/26/20 09:42 Calcium/Vitamin D (OsCal D) 1 tab BID ORAL 06/19/20 09:00 09/17/20 08:59 06/27/20 08:21 Carbamazepine (TEGretol) 200 mg Q12HR GT 06/19/20 09:00 07/19/20 08:59 06/27/20 08:22 Clonidine HCl (Catapres TTS-1) 1 patch QWEEK TDERMAL 06/26/20 17:00 09/24/20 16:59 06/26/20 17:37 Clonidine HCl (Catapres Tab) 0.1 mg Q4H PRN ORAL For High Blood Pressure 06/21/20 13:30 09/19/20 13:29 06/26/20 00:39 Dexamethasone Sodium Phosphate (Decadron 10mg/ ml Inj) 6 mg DAILY IV 06/19/20 09:00 09/17/20 08:59 06/26/20 09:43 Docusate Sodium (Colace) 100 mg THREE TIMES A DAY ORAL 06/20/20 09:30 07/20/20 09:29 06/27/20 08:22 Donepezil HCl (Aricept) 10 mg DAILY ORAL 06/19/20 09:00 07/19/20 08:59 06/27/20 08:21 Dorzolamide HCl (Trusopt) 1 drop TID BOTH EYES 06/19/20 09:00 07/19/20 08:59 06/26/20 09:42 Latanoprost (Xalatan) 1 drop BEDTIME BOTH EYES 06/19/20 21:00 07/19/20 20:59 06/26/20 21:24 Levetiracetam (Keppra) 500 mg TWICE A DAY ORAL 06/19/20 09:00 07/19/20 08:59 06/27/20 08:22 Memantine (Namenda) 10 mg TWICE A DAY ORAL 06/19/20 09:00 07/19/20 08:59 06/27/20 08:22 Metoprolol Tartrate (Lopressor) 50 mg Q12HR ORAL 06/27/20 09:00 09/25/20 08:59 Mirtazapine (Remeron) 7.5 mg BEDTIME ORAL 06/25/20 21:00 09/23/20 20:59 06/26/20 21:25 Montelukast Sodium (Singulair) 10 mg DAILY ORAL 06/19/20 09:00 09/17/20 08:59 06/27/20 08:22 Multivitamins Therapeutic (Therapeutic Multivitamin) 1 ea DAILY ORAL 06/19/20 09:00 07/19/20 08:59 06/27/20 08:22 Nitroglycerin (Nitro-Bid) 1 inch DAILY TOPIC 06/19/20 09:00 07/19/20 08:59 06/26/20 09:39 Nitroglycerin (Ntg) 0.4 mg Q5M X 3 DOSES PRN SL Prn Chest Pain 06/18/20 22:00 07/18/20 21:59 Pantoprazole (Protonix) 40 mg DAILY ORAL 06/19/20 09:00 07/19/20 08:59 06/27/20 08:21 Pravastatin Sodium (Pravachol) 40 mg BEDTIME ORAL 06/27/20 21:00 07/27/20 20:59 Promethazine HCl/ Codeine (Phenergan with Codeine) 5 ml Q4H PRN ORAL For Cough 06/23/20 09:00 07/23/20 08:59 06/23/20 21:34 Assessment/Plan Assessment/Plan 1. COVID pneumonia. 2. Respiratory insufficiency. 3. Hypoxemia. 4. DNR 5. Hypokalemia. 6. Leukocytosis. 7. Possible sepsis. 8. Dementia. 9. Hypercholesterolemia. 10. sinus tachycardia/ hypertension 11. aspiration risk PLAN care noted difficulty with po meds dc planning/ awaiting placement still on decadron conservative management with DNR status/ poor chance of survival impression, plan, and exam edited and reviewed in detail care discussed with Zane Mcguire MD Jun 27, 2020 08:30
[2020-06-27] MEDS: Dorzolamide 2% 10ml Btl BOTH EYES SCH ×3 (08:36→18:21)
[2020-06-27] MEDS: Brimonidine 0.2% Opth Sol BOTH EYES SCH ×2 (08:37→18:20)
[2020-06-27] MEDS: Nitroglycerin 2% oint pkt TOPIC SCH (08:38)
[2020-06-27] MEDS ORDERED: Metoprolol Tartrate 50mg tab ORAL SCH (09:00)
[2020-06-27] MEDS: dexAMETHasone 10mg/ml Inj IV SCH (09:51)
[2020-06-27] MEDS ORDERED: [UNRECOGNIZED DRUG - OTHER] IV SCH (10:00)
[2020-06-27] MEDS ORDERED: Potassium Chloride 40 MEQ in Sodium Chloride 550 ML IV SCH (10:00)
[2020-06-27] MEDS ORDERED: POTASSIUM CHLORIDE IV SCH (11:00)
[2020-06-27] MEDS ORDERED: D5W IV SCH (11:00)
[2020-06-27 11:59] VITALS: BP 147/86
[2020-06-27] MEDS ORDERED: ELIQUIS5 MG PO (13:58)
[2020-06-27] MEDS ORDERED: DOCUSATE SODIU100 MG ORAL (14:00)
[2020-06-27] MEDS ORDERED: NS 275 ML IVPB SCH (14:00)
[2020-06-27] MEDS ORDERED: Potassium Chloride 20 MEQ in NS 275 ML IVPB SCH (14:00)
[2020-06-27] MEDS ORDERED: OS-CAL 500+D31 EAC1 PO (14:00)
[2020-06-27] MEDS ORDERED: MIRTAZAPINE15 MG ORAL (14:02)
[2020-06-27] MEDS ORDERED: PRAVACHOL20 MG ORAL (14:03)
[2020-06-27] MEDS ORDERED: CATAPRES0.1 MG ORAL (14:05)
[2020-06-27] MEDS ORDERED: CATAPRES-TTS 11 EACH TDERMAL (14:06)
[2020-06-27] MEDS ORDERED: Sodium Chloride for KCL Premix X 1hr IV SCH (15:00)
[2020-06-27 16:00] VITALS: BP 158/98
[2020-06-27] MEDS ORDERED: Atorvastatin 20mg tab ORAL SCH (21:00)
--- NOTE | 2020-06-29 02:21 | Cardiology Progress Note ---
Subjective DATE OF SERVICE: Jun 26, 2020 (late entry) Less cough and congestion. Alert but confused. Objective 149/94 97 20 Oxygen sats on RA = 95% LUNGS: bilateral rhonchi CARDIAC: regular rhythm, gallop/S4 ABDOMEN: normal bowel sounds, non tender, soft EXTREMITIES: No edema Assessment/Plan Assessment/Plan COVID19 PNA Ischemic heart disease Hypertension/HHD Sinus tachycardia Hyperlipidemia Hypokalemia Titrate beta cindy Steroids per pulmonary oxygen anti-coagulation anti-viral rx anti-plt therapy with low dose aspirin replace potassiumas needed; monitor Mg++ Lam Levine MD Jun 29, 2020 02:21
--- NOTE | 2020-06-29 12:33 | Discharge Summary ---
Discharge Summary Discharge Summary _ DATE OF ADMISSION: 06/18/2020 DATE OF DISCHARGE: 06/27/2020 DISCHARGED BY: Dr. Angel Loza CONSULTANTS: Dr. Lam Manuel BRIEF HOSPITAL COURSE: Patient is a 75-year-old female, reportedly COVID positive, who presented from nursing home facility due to altered mental status. The patient is DNR. She has medical history notable for dysrhythmia, hypercholesterolemia, glaucoma , COPD, Alzheimer's dementia, stroke with hemiparesis, protein calorie malnutrition and reflux disease. Upon evaluation at ED, patient was febrile with temperature of 100.6, blood pressure 153/96, pulse rate 110. She was saturating 97% on room air. Chest x- ray showed right lower lobe infiltrate. Rapid COVID-19 confirmed positive. WBC was elevated to 19 with normal lactic acid. Head CT did not show any acute intracranial pathology. Patient was pancultured and was started on vancomycin and cefepime. She was noted to be hypernatremic and was given IV fluid. Patient was then admitted for COVID-19 pneumonia. She was continued on IV vancomycin and Zosyn. She was started on dexamethasone. Patient was saturating well on room air. USP medications were continued. Megace was discontinued due to risk for thromboembolism. She was given hypotonic fluids. Blood culture did not isolate any growth. She was taken off antibiotics. Leukocytosis was secondary to steroid. O2 saturations stable. Patient eventually defervesced. She had episodes of tachycardia that responded to beta-cindy. She was given antiplatelet therapy with aspirin. Patient was having difficulty taking p.o. medications. Confirmed with family members, patient is DNR. No artificial feeding. Patient completed steroid treatment and was eventually discharged back to [facility]. FINAL DIAGNOSES: COVID-19 pneumonia Respiratory insufficiency Hypoxemia Possible sepsis Dementia Ischemic heart disease Hypertensive heart disease Sinus tachycardia Hyperlipidemia Hypokalemia Aspiration risk Hypernatremia COPD DISPOSITION: Patient was discharged to SNF. DISCHARGE MEDICATIONS: Refer to Discharge Medication List. I have been assigned to complete a discharge summary on this account, I was not involved with the patient's management.--SCOTT Momin Jacqueline Robles NP Jun 29, 2020 12:33
--- NOTE | 2020-06-29 23:09 | Cardiology Progress Note ---
Subjective DATE OF SERVICE: Jun 25, 2020 (late entry) Less cough and congestion. Alert but confused Free water deficit corrected; with normalized Na level. Objective 141/72 96 19 afebrile RA oxygen sats 94% LUNGS: bilateral rhonchi CARDIAC: regular rhythm, gallop/S4 ABDOMEN: normal bowel sounds, non tender, soft EXTREMITIES: No edema Assessment/Plan Assessment/Plan COVID19 PNA Ischemic heart disease Hypertension/HHD Sinus tachycardia Hyperlipidemia Hypokalemia Hypernatremia corrected Titrate beta cindy Adjusted IVF Steroids per pulmonary oxygen anti-coagulation anti-viral rx anti-plt therapy with low dose aspirin replace potassium as needed; monitor Mg++ Lam Levine MD Jun 29, 2020 23:09
--- NOTE | 2020-06-30 01:22 | Cardiology Progress Note ---
Subjective DATE OF SERVICE: Jun 24, 2020 (late entry) Still has cough and congestion. Alert but confused Free water deficit corrected; with normalized Na level. Objective 136/86 84 22 afebrile LUNGS: bilateral rhonchi CARDIAC: regular rhythm, gallop/S4 ABDOMEN: normal bowel sounds, non tender, soft EXTREMITIES: No edema Assessment/Plan Assessment/Plan COVID19 PNA Ischemic heart disease Hypertension/HHD Sinus tachycardia Hyperlipidemia Hypokalemia Hypernatremia corrected Titrate beta cindy Adjusted IVF Steroids per pulmonary oxygen anti-coagulation anti-viral rx anti-plt therapy with low dose aspirin replace potassium as needed; monitor Mg++ Lam Levine MD Jun 30, 2020 01:22
--- NOTE | 2020-07-01 00:42 | Cardiology Progress Note ---
Subjective DATE OF SERVICE: Jun 23, 2020 (late entry) Still has severe cough and congestion. She is SOB. Alert but confused Free water deficit correcting; with decreasing Na level. Objective LUNGS: bilateral rhonchi CARDIAC: regular rhythm, gallop/S4 ABDOMEN: normal bowel sounds, non tender, soft EXTREMITIES: No edema Assessment/Plan Assessment/Plan COVID19 PNA Ischemic heart disease Hypertension/HHD Sinus tachycardia Hyperlipidemia Hypokalemia Hypernatremia corrected ISOLATIOn Titrate beta cindy Adjusted IVF Steroids per pulmonary oxygen anti-coagulation anti-viral rx anti-plt therapy with low dose aspirin replace potassium as needed; monitor Mg++ Follow-up CXR per pulmonary Lam Levine MD Jul 01, 2020 00:42
== END 2020-06-27 19:50 | DRG 871 ==
LOC: EDBD 18:33 → EMR 18:49 → 4E 18:57 → EDBEDREQ 20:31 → 4E 06-21 16:00
DX: A41.89 Other specified sepsis (principal); U07.1 COVID-19; J12.89 Other viral pneumonia; G93.40 Encephalopathy, unspecified; E87.0 Hyperosmolality and hypernatremia; I24.9 Acute ischemic heart disease, unspecified; I69.359 Hemiplegia and hemiparesis following cerebral infarction affecting unspecified side; E46 Unspecified protein-calorie malnutrition; Z68.1 Body mass index [BMI] 19.9 or less, adult; I11.9 Hypertensive heart disease without heart failure; E87.6 Hypokalemia; Z66 Do not resuscitate; R09.02 Hypoxemia; E78.5 Hyperlipidemia, unspecified; J44.9 Chronic obstructive pulmonary disease, unspecified; G30.9 Alzheimer's disease, unspecified; F02.80 Dementia in other diseases classified elsewhere, unspecified severity, without behavioral disturbance, psychotic disturbance, mood disturbance, and anxiety; Z51.5 Encounter for palliative care; R13.10 Dysphagia, unspecified; H40.9 Unspecified glaucoma; K21.9 Gastro-esophageal reflux disease without esophagitis
CPT/HCPCS: 36415; 36600; 70450; 71045; 80048; 80053; 80156; 82550; 82803; 83605; 83735; 83880; 84484; 85007; 85025; 85610; 85730; 87040; 87081; 94640; 94664; 96361; 96365; 96368; 96375; 99285; J7030; J7620; J8499; U0002